=== PATIENT | male | born 1990 | race Caucasian/White ===

== ENCOUNTER 2019-11-04 19:33 | Emergency (ER) ==
[2019-11-04] MEDS ORDERED: NA CHLORIDE 0.9% 1,000 ML ONE (20:29)
[2019-11-04] MEDS ORDERED: ACETAMINOPHEN 500 MG TAB ONE (20:29)
[2019-11-04 21:01] LABS: Absolute Lymphocytes (CBC) 2.8 K/uL (0.7-4.9); Basophils % 0.9 % (0-1.3); Hematocrit 41.6 % (39.6-49.0); Lymphocytes % 19.1 % (15.3-44.8); MPV 8.7 fL (7.6-11.3); RBC Red Blood Cell Count 5.45 M/uL (4.33-5.43)
[2019-11-04 21:08] LABS: Protime INR 1.12
[2019-11-04] MEDS ORDERED: dexAMETHasone 10 MG/ML VIAL ONE (21:22)
[2019-11-04 21:25] LABS: ALT/SGPT 79 U/L (12-78); AST/SGOT 34 U/L (15-37); Albumin 4.6 g/dL (3.4-5.0); Alkaline Phosphatase 62 U/L (45-117); BUN Blood Urea Nitrogen 12 mg/dL (7-18); Bicarbonate 25 mmol/L (21-32); Bilirubin Direct 0.2 mg/dL (0-0.2); Bilirubin Total 1.5 mg/dL (0.2-1.0); Creatine Phosphokinase 137 U/L (39-308); Glucose Level 100 mg/dL (74-106); Potassium 3.9 mmol/L (3.5-5.1); Protein, Total 8.5 g/dL (6.4-8.2); Sodium Level 139 mmol/L (136-145); Troponin (Emerg Dept Use Only) < 0.02 ng/mL (0.0-0.045)
--- NOTE | 2019-11-04 22:29 | EDPHYS ---
Physician Documentation [facility] Name: Hernando Montez Age: 29 yrs Sex: Male : 1990 Arrival Date: 11/04/2019 Time: 19:40 Bed 6 Private MD: ED Physician Duran Ernandez HPI: 11/03 21:07 This 29 yrs old Male presents to ER via EMS with complaints of Shortness Of Breath - jr8 Covid +. 21:07 The patient has shortness of breath at rest. Onset: The symptoms/episode began/occurred jr8 acutely, today. Duration: The symptoms are continuous, but are markedly better than the original presentation. The patient's shortness of breath has no apparent modifying factors. Associated signs and symptoms: The patient has no apparent associated signs or symptoms. Severity of symptoms: At their worst the symptoms were moderate in the emergency department the symptoms are unchanged. The patient has experienced similar episodes in the past, a few times. The patient has not recently seen a physician. Patient stated that he tested positive for covid about 2 weeks ago. Had recent retest showing he was still positive but has been afebrile. Stated that work wanted him to come back. While at work today started to have asthma attack. Patient given breathing treatments and now feeling better . Historical: - Allergies: 19:46 No Known Allergies; ea - Home Meds: 19:46 None [Active]; ea - PMHx: 19:46 None; ea - Immunization history:: Adult Immunizations up to date. - Social history:: Smoking status: unknown. ROS: 21:07 Eyes: Negative for injury, pain, redness, and discharge, ENT: Negative for injury, jr8 pain, and discharge, Neck: Negative for injury, pain, and swelling, Cardiovascular: Negative for chest pain, palpitations, and edema, Abdomen/GI: Negative for abdominal pain, nausea, vomiting, diarrhea, and constipation, Back: Negative for injury and pain, MS/Extremity: Negative for injury and deformity, Skin: Negative for injury, rash, and discoloration, Neuro: Negative for headache, weakness, numbness, tingling, and seizure. 21:07 Respiratory: Positive for cough, dyspnea on exertion, shortness of breath, wheezing. Exam: 21:07 Eyes: Pupils equal round and reactive to light, extra-ocular motions intact. Lids and jr8 lashes normal. Conjunctiva and sclera are non-icteric and not injected. Cornea within normal limits. Periorbital areas with no swelling, redness, or edema. ENT: Nares patent. No nasal discharge, no septal abnormalities noted. Tympanic membranes are normal and external auditory canals are clear. Oropharynx with no redness, swelling, or masses, exudates, or evidence of obstruction, uvula midline. Mucous membranes moist. Neck: Trachea midline, no thyromegaly or masses palpated, and no cervical lymphadenopathy. Supple, full range of motion without nuchal rigidity, or vertebral point tenderness. No Meningismus. Cardiovascular: Tachycardic with a normal S1 and S2. No gallops, murmurs, or rubs. Normal PMI, no JVD. No pulse deficits. Respiratory: Lungs have equal breath sounds bilaterally, clear to auscultation and percussion. No rales, rhonchi or wheezes noted. No increased work of breathing, no retractions or nasal flaring. Abdomen/GI: Soft, non-tender, with normal bowel sounds. No distension or tympany. No guarding or rebound. No evidence of tenderness throughout. Back: No spinal tenderness. No costovertebral tenderness. Full range of motion. Skin: Warm, dry with normal turgor. Normal color with no rashes, no lesions, and no evidence of cellulitis. MS/ Extremity: Pulses equal, no cyanosis. Neurovascular intact. Full, normal range of motion. Neuro: Awake and alert, GCS 15, oriented to person, place, time, and situation. Cranial nerves II-XII grossly intact. Motor strength 5/5 in all extremities. Sensory grossly intact. Cerebellar exam normal. Normal gait. Vital Signs: 19:41 BP 130 / 90; Pulse 127; Resp 19; Temp 99.8; Pulse Ox 96% ; Weight 95.25 kg; Height 5 ea ft. 8 in. (172.72 cm); 21:05 BP 117 / 85; Pulse 103; Resp 19; Pulse Ox 96% on R/A; ea 22:05 BP 120 / 81; Pulse 103; Resp 19; Pulse Ox 96% ; ea 22:50 BP 120 / 78; Pulse 87; Resp 18; Temp 98.6; Pulse Ox 98% ; ea 19:41 Body Mass Index 31.93 (95.25 kg, 172.72 cm) ea MDM: 19:56 Patient medically screened. 22:26 Data reviewed: vital signs, nurses notes, lab test result(s), EKG, radiologic studies, [facility] CT scan, plain films. Data interpreted: Pulse oximetry: on room air is 96 %. Interpretation: normal. Counseling: I had a detailed discussion with the patient and/or guardian regarding: the historical points, exam findings, and any diagnostic results supporting the discharge/admit diagnosis, lab results, radiology results, the need for outpatient follow up, a family practitioner, to return to the emergency department if symptoms worsen or persist or if there are any questions or concerns that arise at home. 22:27 ED course: Patient feeling better. No concerning findings on labs except DD. CT jr8 negative. Most likely asthma attack. Will d/c home to f/u with PCP . 11/03 20:08 Order name: D-Dimer; Complete Time: 21:32 11/03 20:08 Order name: Basic Metabolic Panel; Complete Time: :32 11/03 20:08 Order name: Blood Culture Adult (2) 11/03 20:08 Order name: CBC with Diff; Complete Time: 21:09 11/03 20:08 Order name: CPK; Complete Time: 21:32 11/03 20:08 Order name: Lactate; Complete Time: 22:04 11/03 20:08 Order name: LFT's; Complete Time: 21:32 11/03 20:08 Order name: Procalcitonin; Complete Time: 22:26 11/03 20:08 Order name: Protime (+inr); Complete Time: 21:32 11/03 20:08 Order name: Ptt, Activated; Complete Time: 21:32 11/03 20:08 Order name: Troponin (emerg Dept Use Only); Complete Time: 21:32 11/03 20:08 Order name: Chest Single View XRAY 11/03 21:13 Order name: CT Chest For PE Angio 11/03 20:08 Order name: Cardiac monitoring; Complete Time: 20:12 11/03 20:08 Order name: EKG - Nurse/Tech; Complete Time: 20:12 11/03 20:08 Order name: IV Saline Lock - Large Bore; Complete Time: 20:12 11/03 20:08 Order name: Labs collected and sent; Complete Time: 21:06 11/03 20:08 Order name: O2 Per Protocol; Complete Time: 20:12 11/03 20:08 Order name: O2 Sat Monitoring; Complete Time: 20:12 Administered Medications: 20:47 Drug: Tylenol 1000 mg Route: PO; ea 22:49 Follow up: Response: No adverse reaction ea 20:47 Drug: NS 0.9% 1000 ml Route: IV; Rate: 1 bolus; Site: left antecubital; ea 22:49 Follow up: Response: No adverse reaction; IV Status: Completed infusion; IV Intake: ea 1000ml 21:19 Drug: Decadron - Dexamethasone 10 mg Route: IVP; Site: left antecubital; ea 22:49 Follow up: Response: No adverse reaction ea Disposition: 11/04 00:39 Co-signature as Attending Physician, Duran Ernandez MD. cristino Disposition: 11/04/19 22:29 Discharged to Home. Impression: Mild intermittent asthma with (acute) exacerbation. - Condition is Stable. - Discharge Instructions: Asthma, Adult. - Prescriptions for Prednisone 20 mg Oral Tablet - take 1 tablet by ORAL route once daily for 5 days; 5 tablet. Albuterol Sulfate 90 mcg/actuation - inhale 1-2 puff by INHALATION route every 4-6 hours; 1 Inhaler. - Medication Reconciliation Form, Thank You Letter, Antibiotic Education, Prescription Opioid Use, Work release form form. - Follow up: Private Physician; When: 2 - 3 days; Reason: Recheck today's complaints, Continuance of care, Re-evaluation by your physician. - Problem is new. - Symptoms have improved. Signatures: Dispatcher [employer] Duran Durbin MD MD pkl Thom Jean PA PA jr8 Carmela Sheppard RN RN ea Corrections: (The following items were deleted from the chart) 11/03 23:01 22:29 11/04/2019 22:29 Discharged to Home. Impression: Mild intermittent asthma with ea (acute) exacerbation. Condition is Stable. Forms are Medication Reconciliation Form, Thank You Letter, Antibiotic Education, Prescription Opioid Use. Follow up: Private Physician; When: 2 - 3 days; Reason: Recheck today's complaints, Continuance of care, Re-evaluation by your physician. Problem is new. Symptoms have improved. jr8
--- NOTE | 2019-11-04 22:29 | ER ---
Nurse's Notes [facility] [place], [place] Name: Hernando Montez Age: 29 yrs Sex: Male : 1990 Arrival Date: 11/04/2019 Time: 19:40 Bed 6 Private MD: Diagnosis: Mild intermittent asthma with (acute) exacerbation Presentation: 11/03 19:41 Chief complaint: EMS states: Reports he was in 2 week quarantine for covid + swab, went ea to the doctor and tested positive again. Pt reports he is SOB EMS reports fever of 100.8. Coronavirus screen: Patient reports shortness of breath or difficulty breathing. Prior COVID test. Ebola Screen: No symptoms or risks identified at this time. Initial Sepsis Screen: Does the patient meet any 2 criteria? HR > 90 bpm. Does the patient have a suspected source of infection? No. Patient's initial sepsis screen is negative. Risk Assessment: Do you want to hurt yourself or someone else? Patient reports no desire to harm self or others. Onset of symptoms was November 04, 2019. 19:41 Method Of Arrival: EMS: [facility] ea 19:41 Acuity: KAMRAN 3 ea Triage Assessment: 19:46 General: Appears uncomfortable, Behavior is appropriate for age. Pain: Denies pain. ea Respiratory: Reports shortness of breath Onset: The symptoms/episode began/occurred this morning, the patient reports symptoms have resolved. Historical: - Allergies: 19:46 No Known Allergies; ea - Home Meds: 19:46 None [Active]; ea - PMHx: 19:46 None; ea - Immunization history:: Adult Immunizations up to date. - Social history:: Smoking status: unknown. Screenin:45 Abuse screen: Denies threats or abuse. Nutritional screening: No deficits noted. ea Tuberculosis screening: No symptoms or risk factors identified. Fall Risk None identified. Assessment: 19:46 General: Appears uncomfortable, Behavior is appropriate for age. Pain: Denies pain. ea Neuro: Level of Consciousness is awake, alert, obeys commands, Oriented to person, place, time, situation. Cardiovascular: Patient's skin is warm and dry. Rhythm is sinus tachycardia. Respiratory: Airway is patent Respiratory effort is even, unlabored, Respiratory pattern is regular, symmetrical. Derm: Skin is intact, Skin is dry, Skin is flushed. 20:50 Reassessment: Patient and/or family updated on plan of care and expected duration. Pain ea level reassessed. Patient is alert, oriented x 3, equal unlabored respirations, skin warm/dry/pink. 21:36 Reassessment: Patient and/or family updated on plan of care and expected duration. Pain ea level reassessed. Patient is alert, oriented x 3, equal unlabored respirations, skin warm/dry/pink. Pt taken to CT. 22:05 Reassessment: Patient and/or family updated on plan of care and expected duration. Pain ea level reassessed. Patient is alert, oriented x 3, equal unlabored respirations, skin warm/dry/pink. 23:00 Reassessment: Patient and/or family updated on plan of care and expected duration. Pain ea level reassessed. Patient is alert, oriented x 3, equal unlabored respirations, skin warm/dry/pink. Discharge instruction given to patient, verbalized the understanding of instruction. Pt left ambulatory accompanied by family. Pt tolerating well. Vital Signs: 19:41 BP 130 / 90; Pulse 127; Resp 19; Temp 99.8; Pulse Ox 96% ; Weight 95.25 kg; Height 5 ea ft. 8 in. (172.72 cm); 21:05 BP 117 / 85; Pulse 103; Resp 19; Pulse Ox 96% on R/A; ea 22:05 BP 120 / 81; Pulse 103; Resp 19; Pulse Ox 96% ; ea 22:50 BP 120 / 78; Pulse 87; Resp 18; Temp 98.6; Pulse Ox 98% ; ea 19:41 Body Mass Index 31.93 (95.25 kg, 172.72 cm) ea ED Course: 19:40 Patient arrived in ED. ea 19:45 Triage completed. ea 19:45 Patient has correct armband on for positive identification. Placed in gown. Bed in low ea position. 19:45 Arm band placed on right wrist. Patient placed in an exam room, on a stretcher, on ea pulse oximetry. 19:56 Thom Jean PA is PHCP. jr8 19:56 Duran Ernandez MD is Attending Physician. jr8 19:59 Carmela Sheppard RN is Primary Nurse. ea 20:35 Inserted saline lock: 20 gauge in left forearm, using aseptic technique. ds4 20:47 Inserted saline lock: 20 gauge in right antecubital area, using aseptic technique. ea Blood collected. 21:44 Chest Single View XRAY In Process Unspecified. EDMS 21:48 CT Chest For PE Angio In Process Unspecified. EDMS 22:50 No provider procedures requiring assistance completed. ea 23:00 IV discontinued, intact, bleeding controlled, No redness/swelling at site. Pressure ea dressing applied. Administered Medications: 20:47 Drug: Tylenol 1000 mg Route: PO; ea 22:49 Follow up: Response: No adverse reaction ea 20:47 Drug: NS 0.9% 1000 ml Route: IV; Rate: 1 bolus; Site: left antecubital; ea 22:49 Follow up: Response: No adverse reaction; IV Status: Completed infusion; IV Intake: ea 1000ml 21:19 Drug: Decadron - Dexamethasone 10 mg Route: IVP; Site: left antecubital; ea 22:49 Follow up: Response: No adverse reaction ea Intake: 22:49 IV: 1000ml; Total: 1000ml. ea Outcome: 22:29 Discharge ordered by MD. gregory 22:59 Discharged to home ambulatory, with significant other. ea 22:59 Condition: stable 22:59 Discharge instructions given to patient, Instructed on discharge instructions, follow up and referral plans. medication usage, Demonstrated understanding of instructions, follow-up care, medications, Prescriptions given X 2. 23:01 Patient left the ED. ea Signatures: Dispatcher [employer] EDMS Thom Jean PA PA jr8 Osorio Soto ds4 Carmela Sheppard, RN RN ea
--- NOTE | 2019-11-05 11:25 | RAD REPORT ---
EXAM DESCRIPTION: Justin Single View11/04/2019 9:44 pm CLINICAL HISTORY: sob COMPARISON: none FINDINGS: The lungs appear clear of acute infiltrate. The heart is normal size IMPRESSION: No acute abnormalities displayed
--- NOTE | 2019-11-07 08:46 | RAD REPORT ---
EXAM DESCRIPTION: CT - Chest For Pe Angio - 11/05/2019 7:24 am CLINICAL HISTORY: Shortness of breath. COMPARISON: None. TECHNIQUE: CT angiogram of the chest with IV contrast. 3-D MIP images were obtained in coronal and s agittal reconstructions. This exam was performed according to our departmental dose-optimization prog ameya, which includes automated exposure control, adjustment of the mA and/or kV according to patient s ize and/or use of iterative reconstruction technique. FINDINGS: No filling defects are identified in the pulmonary trunk, main left and right pulmonary ar teries, or the segmental branches. The thyroid gland is normal. No mediastinal or hilar adenopathy. The heart size is normal without per icardial effusion. The thoracic aorta is normal caliber. No consolidation, pleural effusion, or pneum othorax is identified. The visualized upper abdomen demonstrates no acute findings. No acute osseous findings are seen. IMPRESSION: No acute pulmonary embolism. Electronically signed by: Ismael Boyd MD 11/04/2019 9:59 PM CDT Due to temporary technical issues with the PACS/Fluency reporting system, reports are being signed by the in house radiologist without review as a courtesy to ensure prompt reporting. The interpreting r adiologist is fully responsible for the content of the report.
== END 2019-11-04 23:01 | disposition home or self-care (01) ==
LOC: ER 19:33
DX: J45.21 Mild intermittent asthma with (acute) exacerbation (principal)
CPT/HCPCS: 36415; 71045; 71275; 80048; 80076; 82550; 83605; 84145; 84484; 85025; 85379; 85610; 85730; 87040; 93005; 96361; 96374; 99285; J1100; J7030; Q9967

== ENCOUNTER 2020-01-11 17:23 | Emergency (ER) | payer SELFPAY ==
--- OUTSIDE RECORDS SUMMARY | 2020-01-11 17:25 | XMS REPORT | Summary of Care ---
:1990 Author Organization [facility] Address [address] [place] [address] Care Team Providers Name Role Phone Clint Javed MD Primary Care Provider Reason for Referral (Routine) Status Reason Specialty Diagnoses / Referred By Referred To Procedures Contact Contact New Request Orthopedic Surgery Diagnoses Tinea pedis of left foot Maribel, Procedures CONSULT/REFERRAL PODIATRY BOWEN Rodriguez [address] [place] [address] Reason for Visit Reason Comments Follow-up DIABETES MELLITUS Skin Problem dry feet Encounter Details Date Type Department Care Team Description 10/17/2019 Office Visit [facility] Primary Maribel, Tinea pe dis of left foot (Primary Dx); [facility] BOWEN Rodriguez Fatigue, unspecified type; [address] Over weight; [facility] Family [place] of [place] [address] [id number] Allergies Active Allergy Reactions Severity Noted Date Comments Latex Rash 05/18/2014 documented as of this encounter (statuses as of 10/17/2019) Medications Medication Sig Dispensed Refills Start Date End Date Status tobramycin 0.3 % Place 1 Drop in 1 Bottle 0 04/26/2016 Active ophthalmic drops right eye 4 (four) times daily. azithromycin 2 tabs now then 1 1 Package 0 07/16/2017 Active (ZITHROMAX Z-SHERRY) 250 tab daily for 4 mg tabletIndications: days Bronchitis albuterol 90 Inhale 2 Puffs 8.5 g 11 08/10/2019 A ctive mcg/actuation every 4 (four) inhalerIndications: hours as needed Moderate asthma with for Wheezing or exacerbation, Shortness of unspecified whether Breath. persistent fluticasone Inhale 1 Puff 60 Each 11 08/10/2019 Act mary ann propion-salmeterol every 12 (twelve) 250-50 mcg/dose hours. inhalation diskIndications: Mild persistent asthma, unspecified whether complicated predniSONE 20 mg Take 1 tablet by 6 tablet 0 08/10/2019 Active tabletIndications: mouth 2 (two) Moderate asthma with times daily. exacerbation, unspecified whether persistent cetirizine (ZYRTEC) Take 1 tablet by 30 tablet 11 08/10/2019 Active 10 mg mouth daily. tabletIndications: Acute seasonal allergic rhinitis Melatonin 5 mg Take 1 tablet by 0 08/10/2019 Active tabletIndications: mouth at bedtime. Dysuria OTC clotrimazole 1 % Apply to area(s) 1 Tube 1 10/17/2019 07/2 12/2019 Active topical at bedtime for 30 creamIndications: days. Tinea pedis of left foot documented as of this encounter (statuses as of 10/17/2019) Active Problems Problem Noted Date Tobacco abuse 08/17/2017 Ankle sprain, right, initial encounter 05/16/2015 Asthma 07/27/2013 Allergic rhinitis 07/27/2013 Other disorders of bone and cartilage(733.99) 07/08/19 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 documented as of this encounter (statuses as of 10/17/2019) Immunizations Name Administration Dates Next Due Influenza Virus Vaccine 08/18/2014 documented as of this encounter Social History Tobacco Use Types Packs/Day Years Used Date Former Smoker Cigarettes Quit: 06/20/19 14 Smokeless Tobacco: Former User Chew Q uit: 02/2017 Alcohol Use Drinks/Week oz/Week Comments Yes ocassionaly Sex Assigned at Date Recorded Not on file Job Start Date Occupation Industry Not on file Not on file Not on file Travel History Travel Start Travel End No recent travel history available. COVID-19 Exposure Response Date Recorded In the last month, have you been in contact with No / Unsure 10/03/2019 12:46 PM CDT someone who was confirmed or suspected to have Coronavirus / COVID-19? documented as of this encounter Last Filed Vital Signs Vital Sign Reading Time Taken Comments Blood Pressure 134/89 10/17/2019 1:33 PM CDT Pulse 104 10/17/2019 1:33 PM CDT Temperature - - Respiratory Rate 20 10/17/2019 1:33 PM CDT Oxygen Saturation 97% 10/17/2019 1:33 PM CDT Inhaled Oxygen Concentration - - Weight 91.3 kg (201 lb 3.2 oz) 10/17/2019 1:33 PM CDT Height 175.3 cm (5' 9") 10/17/2019 1:33 PM CDT Body Mass Index 29.71 10/17/2019 1:33 PM CDT documented in this encounter Progress Notes Jennifer López FNP - 10/17/2019 1:30 PM CDT Cc: Chief Complaint Patient presents with Follow-up DIABETES MELLITUS Skin Problem dry feet Hernando Montez is a 28 year old male has a past medical history of Ankle sprain, right, initial encounter (05/16/2015), Asthma (07/27/2013), and Tobacco abuse (08/17/2017). The patient notes dryness and skin flaking of left foot. Foot becomes tender at times. Started 1 month ago. He wears boots at work and believes his feet may be sweating. Hasn't tried any otc treatment. He also notes some fatigue, weight gain of 20 lbs over the past year. Doesn't exercise or follow astrict diet. He would like to be checked for DM, given his strong FH of it. Allergies Hernando is allergic to latex. Medications Outpatient Medications Prior to Visit Medication Sig Dispense Refill albuterol 90 mcg/actuation inhaler Inhale 2 Puffs every 4 (four) hours as needed for Wheezing orShortness of Breath. 8.5 g 11 fluticasone propion-salmeterol 250-50 mcg/dose inhalation disk Inhale 1 Puff every 12 (twelve) hours. 60 Each 11 cetirizine (ZYRTEC) 10 mg tablet Take 1 tablet by mouth daily. 30 tablet 11 Melatonin 5 mg tablet Take 1 tablet by mouth at bedtime. OTC predniSONE 20 mg tablet Take 1 tablet by mouth 2 (two) times daily. 6 tablet 0 azithromycin (ZITHROMAX Z-SHERRY) 250 mg tablet 2 tabs now then 1 tab daily for 4 days 1 Package 0 tobramycin 0.3 % ophthalmic drops Place 1 Drop in right eye 4 (four) times daily. 1 Bottle 0 No facility-administered medications prior to visit. Histories Past Medical History: Diagnosis Date Ankle sprain, right, initial encounter 05/16/2015 Asthma 07/27/2013 Tobacco abuse 08/17/2017 Past Surgical History: Procedure Laterality Date HERNIA REPAIR Social History Socioeconomic History Marital status: Spouse name: Not on file Number of children: Not on file Years of education: Not on file Highest education level: Not on file Occupational History Not on file Social Needs Financial resource strain: Not on file Food insecurity: Worry: Not on file Inability: Not on file Transportation needs: Medical: Not on file Non-medical: Not on file Tobacco Use Smoking status: Former Smoker Types: Cigarettes Last attempt to quit: 06/19/2013 Years since quittin.3 Smokeless tobacco: Former User Types: Chew Quit date: 02/2017 Substance and Sexual Activity Alcohol use: Yes Comment: ocassionaly Drug use: No Sexual activity: Yes Partners: Female Lifestyle Physical activity: Days per week: Not on file Minutes per session: Not on file Stress: Not on file Relationships Social connections: Talks on phone: Not on file Gets together: Not on file Attends moravian service: Not on file Active member of club or organization: Not on file Attends meetings of clubs or organizations: Not on file Relationship status: Not on file Intimate partner violence: Fear of current or ex partner: Not on file Emotionally abused: Not on file Physically abused: Not on file Forced sexual activity: Not on file Other Topics Concern Not on file Social History Narrative 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 Negative for activity change and appetite change. Cardiovascular: Negative for leg swelling. Gastrointestinal: Negative for abdominal pain. Genitourinary: Negative for polyuria. Skin: + dry skin left foot. Neurological: Negative for headaches. Endocrine: Negative for polydipsia and polyuria. Vital Signs BP 134/89 | Pulse 104 | Resp 20 | Ht 5' 9" (1.753 m) | Wt 201 lb 3.2 oz (91.3 kg) | SpO2 97% |BMI 29.71 kg/m Physical Exam Constitutional: He is oriented to person, place, and time. He appears well- developed and well-nourished. HENT: Head: Normocephalic. Right Ear: External ear normal. Left Ear: External ear normal. Eyes: EOM are normal. Neck: Normal range of motion. Neck supple. Cardiovascular: Normal rate, regular rhythm and normal heart sounds. Pulmonary/Chest: Effort normal and breath sounds normal. He has no wheezes. He exhibits no tenderness. Abdominal: Soft. Bowel sounds are normal. Musculoskeletal: Normal range of motion. Neurological: He is alert and oriented to person, place, and time. Skin: + dry skin patches to left foot. + callous Psychiatric: He has a normal mood and affect. His behavior is normal. Judgment and thought content normal. Nursing note and vitals reviewed. Assessment/Plan 1. Tinea pedis of left foot Keep area clean and dry. - CONSULT/REFERRAL PODIATRY - clotrimazole 1 % topical cream; Apply to area(s) at bedtime for 30 days. Dispense: 1 Tube; Refill: 1 2. Fatigue, unspecified type - GLYCOSYLATED HEMOGLOBIN (A1C) - COMP. METABOLIC PANEL (88875) - THYROID STIMULATING HORMONE - FREE T4 - LIPID PANEL (74130)(TOTAL CHOLESTEROL, TRIGLYCERIDES, HDL) - VITAMIN D, 25-OH 3. Overweight - GLYCOSYLATED HEMOGLOBIN (A1C) - LIPID PANEL (50526)(TOTAL CHOLESTEROL, TRIGLYCERIDES, HDL) 4. Family history of diabetes mellitus - GLYCOSYLATED HEMOGLOBIN (A1C) Plan of care, desired health behaviors, goals and medications discussed with patient and educationalresources and self-management tools provided. Patient/family/guardian voices understanding. Barriers to care: none Ability to manage care: good As necessary, prescribed medications and potential significant medication side effects or medicationinteractions were discussed with the patient and will let me know if any occur. Call or return to clinic prn if these symptoms worsen or fail to improve as anticipated. Call or report to ER if symptoms should symptoms progress or worsen. The patient indicates understanding of these issues and agrees with the plan. AVS printed and given to patient/family/guardian documented in this encounter Plan of Treatment Date Type Specialty Care Team Description 11/17/2019 Office Visit Orthopedic Surgery Pebbles Bower FNP [address] [facility] [address] [place] [address] [phone] Name Type Priority Associated Diagnoses Order S chedule GLYCOSYLATED HEMOGLOBIN LAB Routine Fatigue, unspecified type Ordered: 10/17/2019 (A1C) Overweight Family history of diabetes mellitus COMP. METABOLIC PANEL LAB Routine Fatigue, unspecifie d type Ordered: 10/17/2019 (22646) THYROID STIMULATING LAB Routine Fatigue, unspecified type Ordered: 10/17/2019 HORMONE FREE T4 LAB Routine Fatigue, unspecified type Or dered: 10/17/2019 LIPID PANEL (60826)(TOTAL LAB Routine Fatigu e, unspecified type Ordered: 10/17/2019 CHOLESTEROL, Overweight TRIGLYCERIDES, HDL) VITAMIN D, 25-OH LAB Routine Fatigue, unspecified typ e Ordered: 10/17/2019 Health Maintenance Due Date Last Done Comments VARICELLA VACCINES (1 of 2 - 2-dose childhood series) 1990 PNEUMOCOCCAL 0-64 YEARS COMBINED SERIES (1 of 1 - 10/28/1995 PPSV23) DTaP,Tdap,and Td Vaccines (1 - Tdap) 2000 INFLUENZA VACCINE (Season Ended) 2019 08/18/2014 Depression Screening 10/16/2020 10/17/2019 documented as of this encounter Results Not on filedocumented in this encounter Visit Diagnoses Diagnosis Tinea pedis of left foot - Primary Dermatophytosis of foot Fatigue, unspecified type Overweight Family history of diabetes mellitus documented in this encounter Insurance Payer Benefit Plan Subscriber ID Effective Dates Phone Address Type / Group [facility] [id number] 2019-Tim [phone] [address] PPO/POS [place] SELECT t 7 [id number] [place] [address] documented as of this encounter
--- OUTSIDE RECORDS SUMMARY | 2020-01-11 17:25 | XMS REPORT | Summary of Care ---
:1990 Author Organization [facility] Address [address] [place] [address] Care Team Providers Name Role Phone Clint Javed MD Primary Care Provider Reason for Referral (Routine) Status Reason Specialty Diagnoses / Referred By Referred To Procedures Contact Contact New Request Orthopedic Surgery Diagnoses Tinea pedis of left foot Maribel, Procedures CONSULT/REFERRAL PODIATRY BOWEN Rodriguez [address] [place] [address] Reason for Visit Reason Comments Follow-up DIABETES MELLITUS Skin Problem dry feet Encounter Details Date Type Department Care Team Description 10/17/2019 Office Visit [facility] Primary Maribel, Tinea pe dis of left foot (Primary Dx); [facility] BOWEN Rodriguez Fatigue, unspecified type; [address] [address] Over weight; [facility] Family [place] [address] [id number] Allergies Active Allergy Reactions Severity Noted Date [...] file Gets together: Not on file Attends taoism service: Not on file Active member of [...] GLYCOSYLATED HEMOGLOBIN (A1C) - COMP. METABOLIC PANEL (86021) - THYROID STIMULATING HORMONE - FREE T4 - LIPID PANEL (10228)(TOTAL CHOLESTEROL, TRIGLYCERIDES, HDL) - VITAMIN D, 25-OH 3. Overweight - GLYCOSYLATED HEMOGLOBIN (A1C) - LIPID PANEL (98283)(TOTAL CHOLESTEROL, TRIGLYCERIDES, HDL) 4. Family history of [...] Team Description 11/17/2019 Office Visit Orthopedic Surgery Pebbels Bower FNP [address] [facility] [address] [place] [address] [phone] Name Type Priority Associated Diagnoses Order S chedule GLYCOSYLATED HEMOGLOBIN LAB Routine Fatigue, unspecified type Ordered: 10/17/2019 (A1C) Overweight Family history of diabetes mellitus COMP. METABOLIC PANEL LAB Routine Fatigue, unspecifie d type Ordered: 10/17/2019 (20577) THYROID STIMULATING LAB Routine Fatigue, unspecified type Ordered: 10/17/2019 HORMONE FREE T4 LAB Routine Fatigue, unspecified type Or dered: 10/17/2019 LIPID PANEL (60885)(TOTAL LAB Routine Fatigu e, unspecified type Ordered: [...] Effective Dates Phone Address Type / Group [facility] [id number] 2019-Tim [phone] [address] PPO/POS [place] SELECT t 7 [id number] [place] [address] documented as of this encounter
--- OUTSIDE RECORDS SUMMARY | 2020-01-11 17:25 | XMS REPORT | Summary of Care ---
:1990 Author Organization [facility] Review Trackers [facility] Address [address] [place] [address] Care Team Providers Name Role Phone Clint Javed MD Primary Care Provider Reason for Visit Reason Comments LAB WORK Encounter Details Date Type Department Care Team Description 10/17/2019 Auditing Specialist Visit [facility] [place] [address] [place] [address] Fatigue, unspecified Primary and Specialty Lab, [facility] type Care Lab [address] [place] [address] Allergies Active Allergy Reactions Severity Noted Date [...] % Apply to area(s) 1 Tube 1 10/17/201910/19 Active topical at bedtime for 30 creamIndications: [...] of this encounter Last Filed Vital Signs Not on filedocumented in this encounter Plan of Treatment Date Type Specialty Care Team Description 11/17/2019 Office Visit Orthopedic Surgery Pebbles Bower, FRAME GATE MORTISER OPERATOR [address] [facility] [address] [place] [address] [phone] Health Maintenance Due Date Last Done Comments VARICELLA VACCINES (1 of 2 - 2-dose childhood series) 1990 PNEUMOCOCCAL 0-64 YEARS COMBINED SERIES (1 of 1 - 10/28/1995 PPSV23) DTaP,Tdap,and Td Vaccines (1 - Tdap) 2000 INFLUENZA VACCINE (Season Ended) 2019 08/18/2014 Depression Screening 10/16/2020 10/17/2019 documented as of this encounter Results Not on filedocumented in this encounter Visit Diagnoses Diagnosis Fatigue, unspecified type documented in this encounter Insurance Payer Benefit Plan Subscriber ID Effective Dates Phone Address Type / Group [facility] [id number] 2019-Tim [phone] [address] PPO/POS [facility] [id number] [place] [address] documented as of this encounter
--- OUTSIDE RECORDS SUMMARY | 2020-01-11 17:25 | XMS REPORT | Summary of Care ---
:1990 Author Organization [facility] Address [address] [place] [address] Care Team Providers Name Role Phone Clint Javed MD Primary Care Provider Encounter Details Date Type Department Care Team Description 10/17/2019 Orders Only [facility] Doctor Unassigned, No [address] [facility] [place] [address] [address] [place] [address] Allergies Active Allergy Reactions Severity Noted Date [...] daily. exacerbation, unspecified whether persistent cetirizine (ZYRTEC) 10 Take 1 tablet by 30 tablet 11 08/10/2019 Active mg tabletIndications: mouth daily. Acute seasonal allergic rhinitis Melatonin 5 mg Take 1 tablet by 0 08/10/2019 Active tabletIndications: mouth at bedtime. Dysuria OTC documented as of this encounter (statuses as [...] Treatment Date Type Specialty Care Team Description 10/17/2019 Office Visit Family Medicine Nati López, COSMETOLOGY TEACHER [address] [place], [place] [address] Health Maintenance Due Date Last Done Comments VARICELLA VACCINES (1 of 2 - 2-dose childhood series) 1990 PNEUMOCOCCAL 0-64 YEARS COMBINED SERIES (1 of - 10/28/1995 PPSV23) DTaP,Tdap,and Td Vaccines (1 - Tdap) 2000 Depression Screening 2001 INFLUENZA VACCINE (Season Ended) 2019 08/18/2014 documented as of this encounter Procedures Procedure Name Priority Date/Time Associated Diagnosis Comme nts ASSIGNMENT OF BENEFITS Routine 10/17/2019 1:25 PM CDT documented in this encounter Results Not on filedocumented in this encounter Insurance Payer Benefit Plan Subscriber ID Effective Dates Phone Address Type / Group [place] [id number] 2019-Tim [employer] R[employer]K MGMT RISK MGMT t [employer] [facility] [id number] 2019-Tim [phone] [address] PPO/POS [place] SELECT t [id number] [place] [address] documented as of this encounter
--- OUTSIDE RECORDS SUMMARY | 2020-01-11 17:26 | XMS REPORT | Summary of Care ---
:1990 Author Organization [facility] Address [address] [place] [address] Care Team Providers Name Role Phone Clint Javed MD Primary Care Provider Reason for Visit Reason Comments LAB testing Encounter Details Date Type Department Care Team Description 11/01/2019 Laboratory Only [facility] Unknown, Attending Angie dawn [facility] Urgent Care Nurse, Bobby Urgent disease (Primary Dx) [address] [place] [address] Allergies Active Allergy Reactions Severity Noted Date Comments Latex Rash 05/18/2014 documented as of this encounter (statuses as of 11/01/2019) Medications Medication Sig Dispensed Refills Start Date [...] creamIndications: days. Tinea pedis of left foot predniSONE 20 mg Take 40 mg (2 10 tablet 0 10/18/2019 Active tabletIndications: tablets) daily COVID-19 for 5 days documented as of this encounter (statuses as of 11/01/2019) Active Problems Problem Noted Date Acute abdominal pain 10/25/2019 Anxiety in acute stress reaction 10/25/2019 Arm pain 10/25/2019 GERD (gastroesophageal reflux disease) 10/25/2019 Musculoskeletal strain 10/25/2019 Pharyngitis 10/25/2019 Viral infection 10/25/2019 Viral pharyngitis 10/25/2019 Tobacco abuse 08/17/2017 Right ankle sprain 05/16/2015 Asthma 07/27/2013 Allergic rhinitis 07/27/2013 Other disorders of bone and cartilage(733.99) 07/08/19 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 documented as of this encounter (statuses as of 11/01/2019) Immunizations Name Administration Dates Next Due Influenza [...] been in contact with No / Unsure 10/18/2019 1:39 PM CDT someone who was confirmed or suspected to have Coronavirus / COVID-19? documented as of this encounter Last Filed Vital Signs Not on filedocumented in this encounter Plan of Treatment Date Type Specialty Care Team Description 11/17/2019 Office Visit Orthopedic Surgery Pebbles Bower, FITTING SUPERVISOR [address] [facility] [address] [place] [address] [phone] Name Type Priority Associated Diagnoses Order S chedule COVID-19 (PCR MOLECULAR LAB Routine Screening for vir al Expected: 11/01/2019, TESTING) disease Expires: 2020 Health Maintenance Due Date Last Done Comments PNEUMOCOCCAL 0-64 YEARS COMBINED 11/12/2019 Postponed from 10/28/1995 SERIES (1 of 1 - PPSV23) (Altern ative Guidelines) INFLUENZA VACCINE (#1) 2019 08/18/2014 Depression Screening 10/16/2020 10/17/2019 DTaP,Tdap,and Td Vaccines (1 - 10/24/2020 P ostponed from 2000 Tdap) (Refused) VARICELLA VACCINES (1 of 2 - 10/24/2020 Pos tponed from 1990 2-dose childhood series) (Altern ative Guidelines) documented as of this encounter Results Not on filedocumented in this encounter Visit Diagnoses Diagnosis Screening for viral disease - Primary Special screening examination for unspec ified viral disease documented in this encounter Additional Health Concerns Infection Onset Date Last Indicated Resolved Time COVID-19 Confirmed 10/19/2019 10/19/2019 documented as of this encounter Insurance Payer Benefit Plan Subscriber ID Effective Dates Phone Address Type / Group [facility] [employer] [id number] 2019-Tim [phone] [address] PPO/POS [place] [employer] t 7 [id number] [place] [address] documented as of this encounter
--- OUTSIDE RECORDS SUMMARY | 2020-01-11 17:26 | XMS REPORT | Summary of Care ---
:1990 [address] [facility] Address [address] [place] [address] Care Team Providers Name Role Phone Constance Javed MD Primary Care Provider Reason for Visit Reason Comments ED F/U COVID-19 Shortness of Breath (STAT) Status Reason Specialty Diagnoses / Referred By Referred To Procedures Contact Contact Closed Family Medicine Diagnoses COVID-19 Sanket Costa Moore, John North Procedures Discharge Follow-up: PCP CONSTANCE JAVED JR; 3-5 Days MD Maksim MD [address] [place] [address] [address] [place], [place] [address] [place], [place] Phone: [phone] Phone: Fax: Encounter Details Date Type Department Care Team Description 10/25/2019 Telemedicine Visit [facility] Primary Constance Javed 20 19 novel Care-Manoj Barnett Jr., MD coronavirus disease [address] [address] [address] [address] (COVID-19) ( [facility]) [place], [place] [address] [place], [place] [phone] [address] Allergies Active Allergy Reactions Severity Noted Date Comments Latex Rash 05/18/2014 documented as of this encounter (statuses as of 10/25/2019) Medications Medication Sig Dispensed Refills Start Date [...] as of this encounter (statuses as of 10/25/2019) Active Problems Problem Noted Date Acute abdominal [...] as of this encounter (statuses as of 10/25/2019) Immunizations Name Administration Dates Next Due Influenza [...] Signs Not on filedocumented in this encounter Progress Notes Constance Javed Jr., MD - 10/25/2019 8:50 AM CDT TELEHEALTH NOTE Verbal consent obtained from Patient: Hernando Montez due to the COVID-19 pandemic for telehealth services provided below. Communication with patient was conducted via Video Call. Location of Patient: Home Location of Provider: Clinic Date of Service: 10/25/2019 Chief Complaint: ED F/U (COVID-19) and Shortness of Breath HPI: Hernando Montez is a 28 year old male who recently tested costive for COVID-19. He was seen in the ED on 10/18/2019 with c/o of muscles aches, cough, and, fever. He was previously tested for COVID-19 two weeks prior and was negative. COVID-19 Rapid Test conducted in the ED was negative but the SARS-CoV-2 PCR was Positive on 10/18/2019. He was prescribed Prednisone 20 mg 2 tablets (40 mg) for 5 days. Today his breathing has improved and states he last ran a fever 5 days ago. He denies any current SOB. He have a dry cough with a low appetite. He notes slight weight loss. He needs a negative COVID test to return to work. Past Medical History: Diagnosis Date Ankle sprain, right, initial encounter 05/16/2015 Asthma 07/27/2013 Tobacco abuse 08/17/2017 MEDICATIONS: Current Outpatient Medications Medication Sig Dispense Refill predniSONE 20 mg tablet Take 40 mg (2 tablets) daily for 5 days 10 tablet 0 clotrimazole 1 % topical cream Apply to area(s) at bedtime for 30 days. 1 Tube 1 albuterol 90 mcg/actuation inhaler Inhale 2 Puffs every 4 (four) hours as needed for Wheezing orShortness of Breath. 8.5 g 11 cetirizine (ZYRTEC) 10 mg tablet Take 1 tablet by mouth daily. 30 tablet 11 fluticasone propion-salmeterol 250-50 mcg/dose inhalation disk Inhale 1 Puff every 12 (twelve) hours. 60 Each 11 Melatonin 5 mg tablet Take 1 [...] (four) times daily. 1 Bottle 0 No current facility-administered medications for this visit. ROS Review of Systems Constitutional: Positive for fatigue and weight loss. Negative for chills, diaphoresis and fever. HENT: Negative for congestion, ear discharge, ear pain, mouth sores, nosebleeds, rhinorrhea, sneezing, sore throat and trouble swallowing. Eyes: Negative for pain, redness and itching. Respiratory: Positive for cough and shortness of breath. Negative for chest tightness and wheezing. Cardiovascular: Negative for chest pain, palpitations and leg swelling. Gastrointestinal: Negative for anal bleeding, blood in stool, constipation, diarrhea, nausea and vomiting. Genitourinary: Negative for polyuria, frequency, discharge, penile swelling, difficulty urinating, genital sores, penile pain, testicular pain and nocturia. Musculoskeletal: Negative for back pain, joint swelling and neck stiffness. Skin: Negative for color change, pallor and rash. Neurological: Negative for dizziness, tremors, seizures, weakness, numbness and headaches. Psychiatric/Behavioral: Negative for behavioral problems, confusion, hallucinations, self-injury andsuicidal ideas. The patient is not hyperactive. Hematological: Does not bruise/bleed easily. Endocrine: Positive for weight loss. Negative for hair loss, polydipsia and polyuria. TELEHEALTH EXAM Physical Exam Constitutional: He is oriented to person, place, and time. He is cooperative. Pulmonary/Chest: Effort normal and breath sounds normal. Neurological: He is alert and oriented to person, place, and time. Psychiatric: He has a normal mood and affect. His speech is normal and behavior is normal. Thought content normal. Cognition and memory are normal. ASSESSMENT/ PLAN Hernando Montez is a 28 year old male with PMH as above presenting with: 1. COVID-19 Positive - Patient will be scheduled for COVID-19 PCR Test for the future to ensure if he is negative. Advised to schedule test for after October 27. After visit summary (AVS ) documentation will be available through [employer] for this encounter. A total of 15 minutes was spent on the Video Call, chart review, and coordination of care with specialists. SCRIBE: Toño Smith am scribing for, and in the presence of, Constance Javed Jr, MD who performed the services described here-in. Toño Champion, October 25, 2019, 7:39 AM PHYSICIAN: Constance Smith Jr, MD, personally performed the services described in this documentation , as scribed by, Toño Champion in my presence and it is both accurate and complete. Constance Javed Jr, MD October 25, 2019, 10:02 AM documented in this encounter Plan of Treatment Date Type Specialty Care Team Description 10/28/2019 Laboratory Only Family Medicine Nurse, Bobby Urgent 11/17/2019 Office Visit Orthopedic Surgery Pebbles Bower, MISSION COORDINATOR [address] [facility] [address] [place] [address] [phone] Health Maintenance Due Date Last Done Comments [...] filedocumented in this encounter Visit Diagnoses Diagnosis 2019 novel coronavirus disease (COVID-19 ) - Primary documented in this encounter Additional Health Concerns Infection Onset Date Last Indicated Resolved Time COVID-19 Confirmed 10/19/2019 10/19/2019 documented as of this encounter Insurance Payer Benefit Plan Subscriber ID Effective Dates Phone Address Type / Group [facility] [id number] 2019-Tim [phone] [address] PPO/POS [place] SELECT t 7 [id number] [place] [address] documented as of this encounter
--- OUTSIDE RECORDS SUMMARY | 2020-01-11 17:26 | XMS REPORT | Summary of Care ---
:1990 Author Organization [facility] Address [address] [place] [address] Care Team Providers Name Role Phone Clint Javed MD Primary Care Provider Reason for Visit Reason Comments Assessment Encounter Details Date Type Department Care Team Description 11/08/2019 Telephone [facility] Primary Clint Javed Jr. , Assessment [place] [address] [address] [place] [address] [place], [place] [phone] [address] Allergies Active Allergy Reactions Severity Noted Date Comments Latex Rash 05/18/2014 documented as of this encounter (statuses as of 11/08/2019) Medications Medication Sig Dispensed Refills Start Date [...] as of this encounter (statuses as of 11/08/2019) Active Problems Problem Noted Date Elevated LFTs 11/01/2019 Acute abdominal pain 10/25/2019 Anxiety in acute stress reaction 10/25/2019 Arm pain 10/25/2019 GERD (gastroesophageal reflux disease) 10/25/2019 Musculoskeletal strain 10/25/2019 Pharyngitis 10/25/2019 Viral infection 10/25/2019 Viral pharyngitis 10/25/2019 Tobacco abuse 08/17/2017 Right ankle sprain 05/16/2015 Asthma 07/27/2013 Allergic rhinitis 07/27/2013 Other disorders of bone and cartilage(733.99) 07/08/19 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 documented as of this encounter (statuses as of 11/08/2019) Immunizations Name Administration Dates Next Due Influenza [...] Treatment Date Type Specialty Care Team Description 11/21/2019 Office Visit Orthopedic Surgery Pebbles Bower, GENERAL OPERATIONS AGENT [address] [facility] [address] [place] [address] [phone] Health Maintenance Due Date Last Done Comments [...] Results Not on filedocumented in this encounter Additional Health Concerns Infection Onset Date Last Indicated Resolved Time COVID-19 Confirmed 10/19/2019 11/01/2019 documented as of this encounter Insurance Payer Benefit Plan Subscriber ID Effective Dates Phone Address Type / Group [address] [place] [id number] 2019-Presen [employer] R[employer]K MGMT RISK MGMT t [employer] OF [employer] [id number] 2019-Presen [phone] [address] PPO/POS [place] SELECT t 7 [id number] [place] [address] documented as of this encounter
--- OUTSIDE RECORDS SUMMARY | 2020-01-11 17:26 | XMS REPORT | Summary of Care ---
:1990 Author Organization [facility] Address [address] [place] [address] Care Team Providers Name Role Phone Clint Javed MD Primary Care Provider Reason for Visit Reason Comments Results Forms Encounter Details Date Type Department Care Team Description 10/18/2019 Telephone [facility] Primary Jennifer López R esults; Forms [facility] [address] [place] [address] [place], [place] [address] Allergies Active Allergy Reactions Severity Noted Date Comments Latex Rash 05/18/2014 documented as of this encounter (statuses as of 10/18/2019) Medications Medication Sig Dispensed Refills Start Date [...] as of this encounter (statuses as of 10/18/2019) Active Problems Problem Noted Date Tobacco abuse 08/17/2017 Ankle sprain, right, initial encounter 05/16/2015 Asthma 07/27/2013 Allergic rhinitis 07/27/2013 Other disorders of bone and cartilage(733.99) 07/08/19 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 documented as of this encounter (statuses as of 10/18/2019) Immunizations Name Administration Dates Next Due Influenza [...] 11/17/2019 Office Visit Orthopedic Surgery Pebbles Bower, VASCULAR SURGERY PHYSICIAN [address] [facility] [address] [place] [address] [phone] Health Maintenance Due Date Last Done Comments VARICELLA VACCINES (1 of 2 - 2-dose childhood series) 1990 PNEUMOCOCCAL 0-64 YEARS COMBINED SERIES (1 of 1 - 10/28/1995 PPSV23) DTaP,Tdap,and Td Vaccines (1 - Tdap) 2000 INFLUENZA VACCINE (Season Ended) 2019 08/18/2014 Depression Screening 10/16/2020 10/17/2019 documented as of this encounter Results HEPATIC FUNCTION PANEL (23412) (ALB,T.PRO,BILI T,BU/BC,ALT,AST,ALK PHOS) (10/17/2019 2:26 PM CDT) Pathologist Sig nature TOTAL BILI 1.7 (H) 0.1 - 1.1 mg/dL [facility] BILI UNCON 1.7 (H) 0.1 - 1.1 mg/dL [facility] BILI CONJ 0.0 0.0 - 0.3 mg/dL [facility] T PROTEIN 8.4 (H) 6.3 - 8.2 g/dL [facility] ALBUMIN 5.0 3.5 - 5.0 g/dL [facility] ALK PHOS 56 34 - 122 U/L [facility] ALTv 81 (H) 5 - 50 U/L [facility] AST(SGOT) 49 (H) 13 - 40 U/L [facility] Specimen Blood Performing Organization Address City/State/Zipcode Phone Number [facility] CLIA: [id number], [address] [place], [place] [address] [facility] documented in this encounter Visit Diagnoses Diagnosis Elevated ALT measurement - Primary Nonspecific elevation of levels of trans aminase or lactic acid dehydrogenase (LDH) documented in this encounter Insurance Payer Benefit Plan Subscriber ID Effective Dates Phone Address Type / Group [address] [place] [id number] 2019-Presen WCI RISK MGMT RISK MGMT t BCBS OF [employer] [id number] 2019-Presen [phone] [address] PPO/POS [place] SELECT t 7 [id number] [place] [address] documented as of this encounter
--- OUTSIDE RECORDS SUMMARY | 2020-01-11 17:26 | XMS REPORT | Summary of Care ---
:1990 Author Organization [facility] Address [address] [place] [address] Care Team Providers Name Role Phone Clint Javed MD Primary Care Provider Reason for Referral (Routine) Status Reason Specialty Diagnoses / Procedures Referred By Rosenda cullen To Contact Contact New Request Gastroenterology Diagnoses Elevated LFTs Nato López CONSULT/REFERRAL GASTROENTEROLOGY BOWEN Rodriguez [address] [place] [address] Reason for Visit Reason Comments Referral/consult Encounter Details Date Type Department Care Team Description 11/01/2019 Telephone [facility] Primary Jennifer López R eferral/consult Care-[facility] [address] [address] [address] [place] [address] [place], [place] [address] Allergies Active Allergy Reactions Severity Noted Date [...] of 11/01/2019) Active Problems Problem Noted Date Elevated LFTs [...] 11/17/2019 Office Visit Orthopedic Surgery Pebbles Bower, MASSAGE COORDINATOR [address] [facility] [address] [place] [address] [phone] Health Maintenance Due Date Last Done Comments [...] filedocumented in this encounter Visit Diagnoses Diagnosis Elevated LFTs - Primary Other abnormal blood chemistry documented in this encounter Additional Health Concerns Infection Onset Date Last Indicated Resolved Time COVID-19 Confirmed 10/19/2019 10/19/2019 COVID-19 Rule Out 11/01/2019 11/01/2019 documented as of this encounter Insurance Payer Benefit Plan Subscriber ID Effective Dates Phone Address Type / Group [address] [place] [id number] 2019-Presen WCI RISK MGMT RISK MGMT t [employer] OF [employer] [id number] 2019-Presen [phone] [address] PPO/POS [facility] t 7 [id number] [place] [address] documented as of this encounter
--- OUTSIDE RECORDS SUMMARY | 2020-01-11 17:26 | XMS REPORT | Summary of Care ---
:1990 Author Organization [facility] Address [address] [place] [address] Care Team Providers Name Role Phone Clint Javed MD Primary Care Provider Reason for Visit Reason Comments LAB testing Encounter Details Date Type Department Care Team Description 11/01/2019 Laboratory Only [facility] Unknown, Attending Angie dawn [facility] Nurse, Bobby Urgent disease (Primary Dx) [address] [place] [address] Allergies Active Allergy Reactions Severity [...] Team Description 11/17/2019 Office Visit Orthopedic Surgery AbhinavmayitoPebbles, COIN PURSE ASSEMBLER [address] [facility] [address] [place], [place] [address] Name Type Priority Associated Diagnoses Order S [...] Effective Dates Phone Address Type / Group BCBS OF [facility] [employer] [id number] 2019-Tim [phone] [address] PPO/POS [place] SELECT t 7 [id number] [place] [address] documented as of this encounter
--- OUTSIDE RECORDS SUMMARY | 2020-01-11 17:26 | XMS REPORT | Summary of Care ---
:1990 Author Organization [facility] Address [address] [place] [address] Care Team Providers Name Role Phone Constance Javed MD Primary Care Provider Reason for Referral (STAT) Status Reason Specialty Diagnoses / Referred By Referred To Procedures Contact Contact New Request Diagnoses COVID-19 Sanket Costa Moore, John North Procedures Discharge Follow-up: PCP CONSTANCE JAVED JR; 3-5 Days MD Maksim MD [address] [place] [address] [id number] Phone: [phone] Phone: Fax: Reason for Visit Reason Comments Fever Body Aches Sore Throat Auth/Cert Status Reason Specialty Diagnoses / Referred By Referred To Procedures Contact Contact Emergency Medicine [facility] [address] [place] [phone] Fax: Encounter Details Date Type Department Care Team Description 10/18/2019 Emergency [facility] Sanket Costa COVID-19 (Primary Dx) [address] [place] [address] MD [place] [address] [place], [place] [phone] Allergies Active Allergy Reactions Severity Noted Date Comments Latex Rash 05/18/2014 documented as of this encounter (statuses as of 10/18/2019) Medications Medication Sig Dispensed Refills Start Date End Date Status tobramycin 0.3 % Place 1 Drop in 1 Bottle 0 04/26/2016 Active ophthalmic drops right eye 4 (four) times daily. azithromycin 2 tabs now then 1 1 Package 0 07/16/2017 Active (ZITHROMAX Z-SHERRY) tab daily for 4 250 mg days tabletIndications: Bronchitis albuterol 90 Inhale 2 Puffs 8.5 g 11 08/10/2019 A ctive mcg/actuation every 4 (four) inhalerIndications: hours as needed for Moderate asthma Wheezing or with exacerbation, Shortness of unspecified whether Breath. persistent fluticasone Inhale 1 Puff every 60 Each 11 08/10/2019 Active propion-salmeterol 12 (twelve) hours. 250-50 mcg/dose inhalation diskIndications: Mild persistent asthma, unspecified whether complicated predniSONE 20 mg Take 1 tablet by 6 tablet 0 08/10/2019 Active tabletIndications: mouth 2 (two) times Moderate asthma daily. with exacerbation, unspecified whether persistent cetirizine (ZYRTEC) Take 1 tablet by 30 tablet 11 08/10/2019 Active 10 mg mouth daily. tabletIndications: Acute seasonal allergic rhinitis Melatonin 5 mg Take 1 tablet by 0 08/10/2019 Active tabletIndications: mouth at bedtime. Dysuria OTC clotrimazole 1 % Apply to area(s) 1 Tube 1 10/17/201910/19 Active topical at bedtime for 30 creamIndications: days. Tinea pedis of left foot albuterol 90 Inhale 2 Puffs 1 Inhaler 0 10/18/2019 10/23/2019 Active mcg/actuation every 6 (six) hours inhalerIndications: as needed for COVID-19 Wheezing, Shortness of Breath or Bronchospasm for up to 5 days. predniSONE 20 mg Take 40 mg (2 10 tablet 0 10/18/2019 Active tabletIndications: tablets) daily for COVID-19 5 days documented as of this encounter [...] Sign Reading Time Taken Comments Blood Pressure 125/60 10/18/2019 6:44 PM CDT Pulse 117 10/18/2019 6:44 PM CDT Temperature 37.3 C (99.1 F) 10/18/2019 6:44 PM CDT Respiratory Rate 19 10/18/2019 6:44 PM CDT Oxygen Saturation 98% 10/18/2019 6:44 After ambulat ion for 2 PM CDT minutes Inhaled Oxygen - - Concentration Weight 94.3 kg (208 lb) 10/18/2019 1:40 PM CDT Height - - Body Mass Index 30.72 10/17/2019 1:33 PM CDT documented in this encounter Discharge Instructions InstructionsBeSanket garcia MD - 10/18/2019 Your diagnosis is: viral syndrome, presumed covid19 Your treatments today included: Orders Placed This Encounter Procedures POCT RAPID STREP SCREEN FOR GROUP A COVID-19 (ID NOW RAPID TESTING) CORONAVIRUS COVID-19 TESTING CBC WITH DIFF COMP. METABOLIC PANEL (42555) CBC WITH DIFFERENTIAL Discharge Follow-up: PCP CONSTANCE JAVED JR; 3-5 Days No results found for this visit on 10/18/19. Recent Results (from the past 24 hour(s)) COVID-19 (ID NOW RAPID TESTING) Collection Time: 10/18/19 2:37 PM Result Value Ref Range SARS-CoV-2 Rapid ID NOW Not Detected Not Detected POCT RAPID STREP SCREEN FOR GROUP A Collection Time: 10/18/19 3:01 PM Result Value Ref Range POCT GP A STREP Negative Negative - Negative COMP. METABOLIC PANEL ([id number]) Collection Time: 10/18/19 4:46 PM Result Value Ref Range NA 136 135 - 145 mmol/L K 4.4 3.5 - 5.0 mmol/L CL 97 (L) 98 - 108 mmol/L CO2 TOTAL 26 23 - 31 mmol/L AGAP 13 2 - 16 BUN 13 7 - 23 mg/dL GLUCOSE 106 70 - 110 mg/dL CREATININE 1.03 0.60 - 1.25 mg/dL TOTAL BILI 1.7 (H) 0.1 - 1.1 mg/dL CALCIUM 10.3 8.6 - 10.6 mg/dL T PROTEIN 8.3 (H) 6.3 - 8.2 g/dL ALBUMIN 5.0 3.5 - 5.0 g/dL ALK PHOS 61 34 - 122 U/L ALTv 101 (H) 5 - 50 U/L AST(SGOT) 66 (H) 13 - 40 U/L eGFR Calculation (Non-) 85.4 mL/min/1.73m2 eGFR Calculation () 103.5 mL/min/1.73m2 CBC WITH DIFFERENTIAL Collection Time: 10/18/19 4:46 PM Result Value Ref Range WBC 10.73 (H) 4.20 - 10.70 10*3/L RBC 5.71 (H) 4.26 - 5.52 10*6/L HGB 15.3 12.2 - 16.4 g/dL HCT 44.1 38.4 - 49.3 % MCV 77.2 (L) 81.7 - 95.6 fL MCH 26.8 26.1 - 32.7 pg MCHC 34.7 31.2 - 35.0 g/dL RDW-SD 36.3 (L) 38.5 - 51.6 fL RDW-CV 13.2 12.1 - 15.4 % PLT 228 150 - 328 10*3/L MPV 10.8 9.8 - 13.0 fL NRBC/100 WBC 0.0 0.0 - 10.0 /100 WBCs NRBC x10^3 <0.01 10*3/L GRAN MAT (NEUT) % 80.7 % IMM GRAN % 0.60 % LYMPH % 6.9 % MONO % 10.9 % EOS % 0.5 % BASO % 0.4 % GRAN MAT x10^3(ANC) 8.67 (H) 1.99 - 6.95 10*3/uL IMM GRAN x10^3 0.06 0.00 - 0.06 10*3/uL LYMPH x10^3 0.74 (L) 1.09 - 3.23 10*3/uL MONO x10^3 1.17 (H) 0.36 - 1.02 10*3/uL EOS x10^3 0.05 (L) 0.06 - 0.53 10*3/uL BASO x10^3 0.04 0.01 - 0.09 10*3/uL Your prescriptions today are: albuterol , prednisone You will need to follow-up with your Primary Care Provider: 3 day(s) You need to self quarantine until you have a negative covid19 PCR test. If you do not have a primary care provider, you will need to arrange for your own. If you need assistance with this, the discharge planners can help you identify resources appropriate for you. See further medical attention for: severe pain, worsening symptoms, or any other concern. AttachmentsThe following attachments cannot be sent through Care Everywhere. Coronavirus Disease 2019 (COVID-19) (Italian)Coronavirus Disease 2019 (COVID- 19): Prevention (Italian)Coronavirus Disease 2019: Caring for Yourself and Others (Italian)Viral Syndrome (Adult) (Italian)documented in this encounter Plan of Treatment Date Type Specialty Care Team Description 11/17/2019 Office Visit Orthopedic Surgery Pebbles Bower, CUSTODIAL WORKER [address] [facility] [address] [place] [address] [phone] Name Type Priority Associated Diagnoses Date/Ti me CORONAVIRUS COVID-19 LAB STAT COVID-19 020 4:02 PM CDT TESTING Name Type Priority Associated Diagnoses Order S chedule CORONAVIRUS COVID-19 LAB Routine COVID-19 ONCE fo r 1 Occurrences TESTING starting 2019 until 10/18/2019 Health Maintenance Due Date Last Done Comments VARICELLA VACCINES (1 of 2 - 2-dose childhood series) 1990 PNEUMOCOCCAL 0-64 YEARS COMBINED SERIES (1 of 1 - 10/28/1995 PPSV23) DTaP,Tdap,and Td Vaccines (1 - Tdap) 2000 INFLUENZA VACCINE (Season Ended) 2019 08/18/2014 Depression Screening 10/16/2020 10/17/2019 documented as of this encounter Procedures Procedure Name Priority Date/Time Associated Comments Diagnosis CBC WITH DIFFERENTIAL STAT 10/18/2019 4:46 COVID-19 Re sults for this PM CDT procedure are i n the results section. CBC WITH DIFFERENTIAL STAT 10/18/2019 4:46 COVID-19 Re sults for this PM CDT procedure are i n the results section. COMP. METABOLIC PANEL STAT 10/18/2019 4:46 COVID-19 Re sults for this ([id number]) PM CDT procedure are i n the results section. POCT RAPID STREP BENJAMIN 10/18/2019 3:01 COVID-19 Results for this SCREEN FOR GROUP A PM CDT procedure are in the results section. COVID-19 (ID NOW STAT 10/18/2019 2:37 COVID-19 Results for this RAPID TESTING) PM CDT procedure are in the results section. documented in this encounter Results CBC WITH DIFFERENTIAL (10/18/2019 4:46 PM CDT) Pathologist Sig nature WBC 10.73 (H) 4.20 - 10.70 [facility] 10*3/L SERVICES RBC 5.71 (H) 4.26 - 5.52 [facility] 10*6/L SERVICES HGB 15.3 12.2 - 16.4 [facility] g/dL SERVICES HCT 44.1 38.4 - 49.3 % [facility] MCV 77.2 (L) 81.7 - 95.6 fL [facility] MCH 26.8 26.1 - 32.7 pg [facility] MCHC 34.7 31.2 - 35.0 [facility] g/dL SERVICES RDW-SD 36.3 (L) 38.5 - 51.6 fL [facility] RDW-CV 13.2 12.1 - 15.4 % [facility] PLT 228 150 - 328 [facility] 10*3/L SERVICES MPV 10.8 9.8 - 13.0 fL [facility] NRBC/100 WBC 0.0 0.0 - 10.0 /100 [facility] WBCs SERVICES NRBC x10^3 <0.01 10*3/L [facility] GRAN MAT (NEUT) % 80.7 % [facility] IMM GRAN % 0.60 % [facility] LYMPH % 6.9 % [facility] MONO % 10.9 % [facility] EOS % 0.5 % [facility] BASO % 0.4 % [facility] GRAN MAT x10^3(ANC) 8.67 (H) 1.99 - 6.95 [facility] 10*3/uL SERVICES IMM GRAN x10^3 0.06 0.00 - 0.06 [facility] 10*3/uL SERVICES LYMPH x10^3 0.74 (L) 1.09 - 3.23 [facility] 10*3/uL SERVICES MONO x10^3 1.17 (H) 0.36 - 1.02 [facility] 10*3/uL SERVICES EOS x10^3 0.05 (L) 0.06 - 0.53 [facility] 10*3/uL SERVICES BASO x10^3 0.04 0.01 - 0.09 [facility] 10*3/uL SERVICES Specimen Blood - ARM, RIGHT Performing Organization Address City/State/Zipcode Phone Number [facility] CLIA: [id number], [address] [place], [place] [address] [facility] COMP. METABOLIC PANEL ([id number]) (10/18/2019 4:46 PM CDT) Pathologist Sig nature NA 136 135 - 145 [facility] mmol/L SERVICES K 4.4 3.5 - 5.0 [facility] mmol/L SERVICES CL 97 (L) 98 - 108 mmol/L [facility] CO2 TOTAL 26 23 - 31 mmol/L [facility] AGAP 13 2 - 16 [facility] BUN 13 7 - 23 mg/dL [facility] GLUCOSE 106 70 - 110 mg/dL [facility] CREATININE 1.03 0.60 - 1.25 [facility] mg/dL SERVICES TOTAL BILI 1.7 (H) 0.1 - 1.1 mg/dL [facility] CALCIUM 10.3 8.6 - 10.6 [facility] mg/dL SERVICES T PROTEIN 8.3 (H) 6.3 - 8.2 g/dL [facility] ALBUMIN 5.0 3.5 - 5.0 g/dL [facility] ALK PHOS 61 34 - 122 U/L [facility] ALTv 101 (H) 5 - 50 U/L [facility] AST(SGOT) 66 (H) 13 - 40 U/L [facility] eGFR Calculation 85.4 mL/min/1.73m2 [facility] (Non- SERVICES [place]ian) eGFR Calculation 103.5 mL/min/1.73m2 [facility] () SERVICES Specimen Blood - ARM, RIGHT Narrative Performed At Association of Glomerular Filtration Rate (GFR) and St aging [facility] of Kidney Disease* + + +------- ------ + | GFR (mL/min/1.73 m2) | With Kidney Damage | Wi thout Kidney Damage + + +------- ------ + | >90 | Stage one | Normal + + +------- ------ + | 60-89 | Stage two | Decreased GFR + + +------- ------ + | 30-59 | Stage three | Stage three + + +------- ------ + | 15-29 | Stage four | Stage four + + +------- ------ + | <15 (or dialysis) | Stage five | Stage five + + +------- ------ + *Each stage assumes the associated GFR level has been in effect for at least three months. Stages 1 to 5, wit h or without kidney disease, indicate chronic kidney disease. Notes: Determination of stages one and two (with eGFR >59mL/min/1.73 m2) requires estimation of kidney damag e for at least three months as defined by structural or func tional abnormalities of the kidney, manifested by either: Pathological abnormalities or Markers of kidney damage (including abnormalities in the composition of the blo od or urine or abnormalities in imaging tests) . Performing Organization Address City/State/Zipcode Phone Number [facility] CLIA: [id number], [address] [place], [place] [address] [facility] POCT RAPID STREP SCREEN FOR GROUP A (10/18/2019 3:01 PM CDT) Pathologist Sig nature POCT GP A STREP Negative Negative - Negative Specimen Swab - THROAT COVID-19 (ID NOW RAPID TESTING) (10/18/2019 2:37 PM CDT) SARS-CoV-2 Rapid ID Not Detected Not Detected [facility] NOW SERVICES Specimen Swab - NASOPHARYNGEAL SWAB Narrative Performed At ID NOW COVID-19 Assay is an isothermal nucleic acid [facility] amplification test intended for the qualitative detect ion of nucleic acid from SARS-CoV-2 viral RNA in nasopharynge al (ROLLOFF TRUCK DRIVER) specimens. It is used under Emergency Use Authori zation (EUA) by FDA. The limit of detection (LOD) of the assa y is 125 Genome Equivalents/mL. A positive result is indicative of the presence of SARS-CoV-2 RNA. Clinical correlation with patient hi story and other diagnostic information is necessary to deter mine patient infection status. A negative (Not Detected) result does not preclude SARS-CoV-2 infection. In patients with clinical sympto ms and other tests that are consistent with SARS-CoV-2 infect ion, negative results should be treated as presumptive nega tive and a new specimen should be tested with alternative P CR molecular test. Invalid: Please collect a new specimen for repeat freya ent testing if clinically indicated. Performing Organization Address City/State/Zipcode Phone Number [facility] CLIA: [id number], [address] [place] [address] [facility] documented in this encounter Visit Diagnoses Diagnosis COVID-19 - Primary documented in this encounter Administered Medications Medication Order MAR Action Action Date Dose Rate Site acetaminophen (TYLENOL) tablet Given 10/18/2019 2:38 PM CDT 650 mg 650 mg 650 mg, Oral, ONCE, 1 dose, 10/18/19 at 1445, BENJAMIN albuterol (VENTOLIN) inhaler 2 Puff Given 10/18/2019 2:38 PM CDT 2 Puffs 2 Puff, Inhalation, ONCE, 1 dose, 10/18/19 at 1515, BENJAMIN, Is this order for a patient with suspected or confirmed COVID-19 infection? Yes NaCl 0.9% (NS) bolus infusion New Bag 10/18/2019 4:46 PM CDT 2,000 mL 999 mL/hr 2,000 mL at 999 mL/hr, 2,000 mL, IV Infusion, ONCE, 1 dose, 10/18/19 at 1715, STAT documented in this encounter Insurance Payer Benefit Plan Subscriber ID Effective Dates Phone Address Type / Group [facility] [id number] 2019-Tim [phone] [address] PPO/POS [place] SELECT t 7 [id number] [place] [address] documented as of this encounter"
--- OUTSIDE RECORDS SUMMARY | 2020-01-11 17:26 | XMS REPORT | Summary of Care ---
:1990 Author Organization [facility] Address [address] [place] [address] Care Team Providers Name Role Phone Clint Javed MD Primary Care Provider Reason for Visit Reason Comments Results Forms Encounter Details Date Type Department Care Team Description 10/18/2019 Telephone [facility] Primary Jennifer López R esults; Forms [facility] [address] [place] [address] [place], [place] [address] Allergies Active Allergy Reactions Severity Noted Date [...] 11/17/2019 Office Visit Orthopedic Surgery Pebbles Bower, OBSTETRICS/GYNECOLOGY NURSE [address] [facility] [address] [place] [address] [phone] Health Maintenance Due Date Last Done Comments VARICELLA VACCINES (1 of 2 - 2-dose childhood series) 1990 PNEUMOCOCCAL 0-64 YEARS COMBINED SERIES (1 of 1 - 10/28/1995 PPSV23) DTaP,Tdap,and Td Vaccines (1 - Tdap) 2000 INFLUENZA VACCINE (Season Ended) 2019 08/18/2014 Depression Screening 10/16/2020 10/17/2019 documented as of this encounter Results HEPATIC FUNCTION PANEL ([id number]) (ALB,T.PRO,BILI T,BU/BC,ALT,AST,ALK PHOS) (10/17/2019 2:26 PM CDT) Pathologist Sig nature TOTAL BILI 1.7 (H) 0.1 - 1.1 mg/dL [facility] BILI UNCON 1.7 (H) 0.1 - 1.1 mg/dL [facility] BILI CONJ 0.0 0.0 - 0.3 mg/dL [facility] T PROTEIN 8.4 (H) 6.3 - 8.2 g/dL [facility] ALBUMIN 5.0 3.5 - 5.0 g/dL [facility] ALK PHOS 56 34 - 122 U/L [facility] ALTv 81 (H) 5 - 50 U/L [facility] AST(SGOT) 49 (H) 13 - 40 U/L [facility] Specimen Blood Performing Organization Address City/State/Zipcode Phone Number [facility] CLIA: [id number], [address] [place], [place] [address] [facility] documented in this encounter Visit Diagnoses Diagnosis Elevated ALT measurement - Primary Nonspecific elevation of levels of trans aminase or lactic acid dehydrogenase (LDH) documented in this encounter Insurance Payer Benefit Plan Subscriber ID Effective Dates Phone Address Type / Group [place] [id number] 2019-Presen [employer] RISK MGMT RISK MGMT t [employer] [place] [employer] [id number] 2019-Presen [phone] [address] PPO/POS [place] SELECT t 7 [id number] [place] [address] documented as of this encounter
--- OUTSIDE RECORDS SUMMARY | 2020-01-11 17:26 | XMS REPORT | Summary of Care ---
:1990 Author Organization [facility] Address [address] [place] [address] Care Team Providers Name Role Phone Clint Javed MD Primary Care Provider Reason for Visit Reason Comments Results Encounter Details Date Type Department Care Team Description 11/02/2019 Telephone [facility] Mike Grace MD Results Urgent Care [address] [facility] [address] [phone] [place] [address] [phone] Allergies Active Allergy Reactions Severity Noted Date Comments Latex Rash 05/18/2014 documented as of this encounter (statuses as of 11/02/2019) Medications Medication Sig Dispensed Refills Start Date [...] as of this encounter (statuses as of 11/02/2019) Active Problems Problem Noted Date Elevated LFTs [...] as of this encounter (statuses as of 11/02/2019) Immunizations Name Administration Dates Next Due Influenza [...] 11/17/2019 Office Visit Orthopedic Surgery Pebbles Bower, BINDING PRINTER [address] [facility] [address] [place] [address] [phone] Health Maintenance Due Date Last Done Comments [...] Indicated Resolved Time COVID-19 Confirmed 10/19/2019 11/01/2019 COVID-19 Rule Out 11/01/2019 11/01/2019 11/02/2019 10: 12 AM CDT documented as of this encounter Insurance Payer Benefit Plan Subscriber ID Effective Dates Phone Address Type / Group [place] [id number] 2019-Presen WCI RISK MGMT RISK MGMT t [employer] [place] [id number] 2019-Presen [phone] [address] PPO/POS [place] SELECT t [id number] [place] [address] documented as of this encounter
--- OUTSIDE RECORDS SUMMARY | 2020-01-11 17:27 | XMS REPORT | Summary of Care ---
:1990 Author Organization [facility] Address [address] [place] [address] Care Team Providers Name Role Phone Pcp, Patient Does Not Have A Primary Care Provider +[id number] 0-0000 Reason for Visit Reason Comments Error Encounter Details Date Type Department Care Team Description 11/27/2019 Telephone [facility] Primary Valeriano López FNP [facility] [address] [place] [address] [place] [address] [place], [place] [address] Allergies Active Allergy Reactions Severity Noted Date Comments Latex Rash 05/18/2014 documented as of this encounter (statuses as of 11/27/2019) Medications Medication Sig Dispensed Refills Start Date [...] Active tabletIndications: mouth at bedtime. Dysuria OTC predniSONE 20 mg Take 40 mg (2 10 tablet 0 10/18/2019 Active tabletIndications: tablets) daily for COVID-19 5 days benzonatate 100 mg Take 1 capsule by 14 capsule 0 11/08/2019 Active capsuleIndications: mouth 3 (three) Chest pain, times daily as unspecified type, needed for Cough. COVID-19 virus infection, Acute respiratory disease due to COVID-19 virus, Cough documented as of this encounter (statuses as of 11/27/2019) Active Problems Problem Noted Date Elevated LFTs [...] as of this encounter (statuses as of 11/27/2019) Immunizations Name Administration Dates Next Due Influenza Virus Vaccine 08/18/2014 documented as of this encounter Social History Tobacco Use Types Packs/Day Years Used Date Former Smoker Cigarettes Quit: 06/20/19 14 Smokeless Tobacco: Former User Chew Q uit: 02/2017 Alcohol Use Drinks/Week oz/Week Comments Yes ocassionaly Sex Assigned at Date Recorded Not on file COVID-19 Exposure Response Date Recorded In the last month, have you been in contact with Yes 11/08/2019 11:37 AM CDT someone who was confirmed or suspected to have Coronavirus / COVID-19? documented as of this encounter Last Filed Vital Signs Not on filedocumented in this encounter Plan of Treatment Date Type Specialty Care Team Description 01/10/2020 Office Visit Gastroenterology Evelia Eli, ACNP [address] [facility] [address] [place] [address] [phone] Health Maintenance Due Date Last Done Comments PNEUMOCOCCAL 0-64 YEARS COMBINED 10/28/1995 SERIES (1 of 1 - PPSV23) INFLUENZA VACCINE (#1) 2019 08/18/2014 Depression Screening 10/16/2020 10/17/2019 DTaP,Tdap,and Td Vaccines (1 - 10/24/2020 P ostponed from 2008 Tdap) (Refused) VARICELLA VACCINES (1 of 2 [...] Group [facility] OFF OF ST OFF OF [id number] 2019-Tim [facility]CI RISK MGMT RISK MGMT t [employer] [place] [id number] 2019-Tim [phone] [address] PPO/POS [place] [employer] t 7 [id number] [place] [address] documented as of this encounter
--- OUTSIDE RECORDS SUMMARY | 2020-01-11 17:27 | XMS REPORT | Summary of Care ---
:1990 Author Organization [facility] Address [address] [place] [address] Care Team Providers Name Role Phone Pcp, Patient Does Not Have A Primary Care Provider +[id number] 0-0000 Reason for Visit Reason Comments Forms Work Excuse Encounter Details Date Type Department Care Team Description 12/01/2019 Telephone [facility] Ajay Hodges FNP Forms; Work Excuse Urgent Care [address] [address] [address] [place], [place] [address] [place] [address] [phone] Allergies Active Allergy Reactions Severity Noted Date Comments Latex Rash 05/18/2014 documented as of this encounter (statuses as of 12/01/2019) Medications Medication Sig Dispensed Refills Start Date [...] as of this encounter (statuses as of 12/01/2019) Active Problems Problem Noted Date Elevated LFTs [...] as of this encounter (statuses as of 12/01/2019) Immunizations Name Administration Dates Next Due Influenza [...] Signs Not on filedocumented in this encounter Miscellaneous Notes Telephone Encounter - Ruth Ann Albright LVN - 12/01/2019 2:58 PM CDTCalled patient regarding work excuse.Left message for patient to call back and state what information is needed in letter. elephone Encounter - Gricel Jones - 12/01/2019 11:21 AM Nicolás Melida is a 29 year old male whose work isn't accepting the work note. They need a medical fact on it to accept. Please advise, thank you. documented in this encounter Plan of Treatment Date Type Specialty Care Team Description 12/02/2019 Laboratory Only Phlebotomy Only, Pcp Test 01/10/2020 Office Visit [facility]velia [facility], [facility] [address] [facility] [address] [place] [address] [phone] Health Maintenance Due Date Last Done Comments PNEUMOCOCCAL 0-64 YEARS COMBINED 10/28/1995 SERIES (1 of 3 - PCV13) INFLUENZA VACCINE (#1) 2019 08/18/2014 Depression Screening [...] Group ST OFF OF ST OFF OF [id number] 2019-Tim [facility] RISK MGMT RISK MGMT t [employer] [facility] [id number] 2019-Tim [phone] [address] PPO/POS [place] SELECT t 7 [id number] [place] [address] documented as of this encounter
--- OUTSIDE RECORDS SUMMARY | 2020-01-11 17:27 | XMS REPORT | Summary of Care ---
:1990 Author Organization [facility] Address [address] [place] [address] Care Team Providers Name Role Phone Pcp, Patient Does Not Have A Primary Care Provider +[id number] 0-0000 Reason for Referral (Routine) Status Reason Specialty Diagnoses / Referred By Referred To Procedures Contact Contact New Request Cardiology Diagnoses Palpitations [place], Procedures CONSULT/REFERRAL CARDIOLOGY MD Ángel [address] [place] [address] (Routine) Status Reason Specialty Diagnoses / Referred By Referred To Procedures Contact Contact New Request Gastroenterology Diagnoses Elevated liver enzymes Elevated bilirubin [place], Procedures CONSULT/REFERRAL HEPATOLOGY MD Ángel [address] [place] [address] Reason for Visit Reason Comments DIZZY Encounter Details Date Type Department Care Team Description 12/21/2019 Office Visit [facility] Primary [place], Elevated liver enzymes (Primary Dx); [facility] Elevated bilirubin; [address] [address] [address] Mode rate persistent asthma without complication; [address] [place] [address] [phone] Allergies Active Allergy Reactions Severity Noted Date Comments Latex Rash 05/18/2014 documented as of this encounter (statuses as of 01/01/2020) Medications Medication Sig Dispensed Refills Start Date End Date Status tobramycin 0.3 % Place 1 Drop in 1 Bottle 0 04/26/2016 Active ophthalmic drops right eye 4 (four) times daily. azithromycin 2 tabs now then 1 Package 0 07/16/2017 Active (ZITHROMAX Z-SHERRY) 1 tab daily for 250 mg 4 days tabletIndications: Bronchitis albuterol 90 Inhale 2 Puffs 8.5 g 11 08/10/2019 A ctive mcg/actuation every 4 (four) inhalerIndications hours as needed : Moderate asthma for Wheezing or with exacerbation, Shortness of unspecified Breath. whether persistent predniSONE 20 mg Take 1 tablet 6 tablet 0 08/10/2019 Active tabletIndications: by mouth 2 Moderate asthma (two) times with exacerbation, daily. unspecified whether persistent cetirizine Take 1 tablet 30 tablet 11 08/10/2019 Acti ve (ZYRTEC) 10 mg by mouth daily. tabletIndications: Acute seasonal allergic rhinitis Melatonin 5 mg Take 1 tablet 0 08/10/2019 Active tabletIndications: by mouth at Dysuria bedtime. OTC predniSONE 20 mg Take 40 mg (2 10 tablet 0 10/18/2019 Active tabletIndications: tablets) daily COVID-19 for 5 days benzonatate 100 mg Take 1 capsule 14 capsule 0 11/08/2019 Active capsuleIndications by mouth 3 : Chest pain, (three) times unspecified type, daily as needed COVID-19 virus for Cough. infection, Acute respiratory disease due to COVID-19 virus, Cough Fluticasone-Salmet Inhale 1 Puff 60 Each 5 12/21/2019 Active prabha (ADVAIR every 12 DISKUS) 500-50 (twelve) hours. mcg/dose inhalation diskIndications: Moderate persistent asthma without complication montelukast Take 1 tablet 30 tablet 2 12/21/2019 Act mary ann (SINGULAIR) 10 mg by mouth at tabletIndications: bedtime. Moderate persistent asthma without complication fluticasone Inhale 1 Puff 60 Each 11 08/10/2019 Dis continued propion-salmeterol every 12 0 250-50 mcg/dose (twelve) hours. inhalation diskIndications: Mild persistent asthma, unspecified whether complicated documented as of this encounter (statuses as of 01/01/2020) Active Problems Problem Noted Date Elevated LFTs [...] as of this encounter (statuses as of 01/01/2020) Immunizations Name Administration Dates Next Due Influenza [...] been in contact with No / Unsure 12/21/2019 1:42 PM CDT someone who was confirmed or suspected to have Coronavirus / COVID-19? documented as of this encounter Last Filed Vital Signs Vital Sign Reading Time Taken Comments Blood Pressure 121/70 12/21/2019 1:56 PM CDT Pulse 85 12/21/2019 1:56 PM CDT Temperature 36.7 C (98.1 F) 12/21/2019 1:56 PM CDT Respiratory Rate 17 12/21/2019 1:56 PM CDT Oxygen Saturation 98% 12/21/2019 1:56 PM CDT Inhaled Oxygen Concentration - - Weight 90.3 kg (199 lb) 12/21/2019 1:56 PM CDT Height 175.3 cm (5' 9") 12/21/2019 1:56 PM CDT Body Mass Index 29.39 12/21/2019 1:56 PM CDT documented in this encounter Patient Instructions Patient InstructionsÁngel Mohamud MD - 12/21/2019 2:00 PM CDT Patient Education Understanding Heart Palpitations Heart palpitations are the feeling you have when your heartbeat seems to be racing, pounding, skipping, or fluttering. Heart palpitations are most often felt in the chest. Sometimes, they may also be felt in the neck. What causes heart palpitations? In most cases, heart palpitations are caused by: Stress or anxiety Exercise Some medicines Caffeine Nicotine Alcohol Illegal drugs, such as cocaine Health problems, such as anemia or overactive thyroid Many heart palpitations are harmless. But in some cases, palpitations may be caused by a problem with the heart such as an abnormal heart rhythm (arrhythmia). They may need to be managed by you and your healthcare provider or treated right away. How are heart palpitations treated? Treatments for heart palpitations depend on the cause. Options may include: Managing the things that trigger your heart palpitations. This could mean: ? Learning ways to reduce stress and anxiety ? Staying away from caffeine, nicotine, alcohol, and illegal drugs ? Stopping the use of certain medicines, under your doctors guidance Medicines, procedures, or surgery to treat an arrhythmia or other health problem that is causing your symptoms What are possible complications of heart palpitations? Complications of heart palpitations are rare unless they are caused by a problem such as an arrhythmia. In such cases, complications can include: Fainting Heart failure. This problem occurs when the heart is so weak it no longer pumps blood well. Blood clots and stroke Sudden cardiac arrest. This problem occurs when the heart suddenly stops beating. When should I call my healthcare provider? Call your healthcare provider right away if you have any of these: Palpitations that prevent you from sleeping or otherwise affect your quality of life. Symptoms that dont get better with treatment, or symptoms that get worse New symptoms, such as chest pain, shortness of breath, dizziness, or fainting [employer] last reviewed this educational content on 09/18/201819995990-0976 The [employer]. [address] [place] [address], [place] [address]. All rights reserved. This information is not intended as a substitute for professional medical care. Always follow your healthcare professional's instructions. Patient Education Asthma What is asthma? Asthma is a long-term (chronic) ?lung disease.The airways react to triggers (allergens and irritants). This makes it hard to breathe. With exposure to triggers, these changes occur: The airways become swollen and inflamed. The muscles around the airways tighten. Moremucus is made. This leads to mucus plugs. All of these changes make the airways narrow. This makes it hard for air to go out of the lungs. Andfresh oxygen can't get into the body. What causes asthma? Experts don't know the exact cause of asthma. They believe it is partly inherited.The environment,infections, and chemicals released by the body also play a role. Exercise causes symptoms in many people with asthma. Symptoms can occur during exercise. They can also occur right after exercise. In some people, stress or strong feelings can cause symptoms. All of these may be asthma triggers: Allergens Respiratory problem Pollens (trees, grasses, and weeds) Mold Pets Dust and dust mites Cockroaches Mice Nasal allergies Sinus infections The flu Viral infections, including the common cold Irritants Medicines Strong odors from perfumes, insulation estimator, cooking, paints, and varnishes Chemicals (gases, fumes) Air pollution Changing weather (temperature, barometric pressure, humidity, and strong winds) Smoke (tobacco-inhaled or secondhand) Aspirin NSAIDs (nonsteroidal anti-inflammatory drugs) such as ibuprofen Other conditions GERD (gastroesophageal reflux) Sleep apnea Overweight Depression Other Exercise, especially in cold weather Strong feelings that go along with laughing or crying Who is at risk for asthma? It is most common in: Children and teens ages 5 to17 Peopleliving in cities Other factors include: Personal or family history of asthma or allergies Exposure to secondhand tobacco smoke Children with a family history of asthma Children who have allergies or atopic dermatitis Children exposed to secondhand and tobacco smoke What are the symptoms of asthma? Symptoms include: Trouble breathing or shortness of breath Chest tightness Wheezing or a whistling sound when breathing Coughing Breathing becomes harder and may hurt Talking and sleeping may be harder with severe symptoms How is asthma diagnosed? Your healthcare provider will ask about your health history. He or she will give you a physical exam. You will also have other tests. An important test is spirometry. A spirometer is a device used to find out how well thelungs are working. Itmeasures the amount and speed of air breathed out. You may have other tests. These are done to check for conditions such as allergies. How is asthma treated? Treatment will depend on your symptoms, age, and general health. It will also depend on how severe the condition is. There is no cure for asthma. Itcanoften be controlled by staying away from triggers. And by taking medicines as prescribed by your healthcare provider. Watching symptoms is a restrepo part of asthma care. So is knowing what to do if symptoms get worse. Experts advise making an Asthma Action Plan with your provider. Medicines for asthma The 2 types of asthma medicines arelong-term control and short-term (quick- relief) medicines. Long-term control medicines are often taken every day. They help prevent symptoms. Quick-relief medicinescalm asthma symptoms fast. But they only last for a short time. You may take either type of medicinealone. Some people take both. Your healthcare provider should regularly check and adjust your medicines as needed. Long-term control medicines At first, it may take a few weeks for long-term control medicines to work. You must take these medicines every day. These medicines include: Anti-inflammatory medicines.These medicines reduce or prevent airway swelling. Bronchodilators. These relax muscles around the airways. Leukotriene modifiers.These block the action of chemicals called leukotrienes. These are chemicals that cause airways to be inflamed and narrowed. Anti-IgE(omalizumab).This medicine reduces allergic reactions. It is a shot (injection) given 1or 2 times a month. It is often used when asthma is harder to control. Anti-IL-5 (Interleukin-5) agents. These are given by injection in a provider's office. They blocka chemical in the body called IL-5. Quick-relief medicines Quick-relief medicines quickly relax the muscles around the airways. But the relief only lasts about2 to 3 hours. These medicines may include: Inhaled short-acting beta2-agonists . These help relax muscles around the airways. Inhaled anticholinergics . These block a chemical in the body called acetylcholine. This chemicalcontracts the muscles. It also causes more mucusin the airways. Inhalation devices for asthma Inhaled medicines goright to the lungs. There have fewer side effects than medicines taken by mouth. Inhaledmedicinesmay be anti-inflammatory or bronchodilating. Or they may be both. The devices used are: Metered-dose inhaler (MDI).This is the most common type of inhaler. It uses a chemical to push the medicine out of the inhaler. MDIs are held in front of or put into the mouth. Then the medicine is released in puffs. Or they may be used with a spacer device. Nebulizer.This device sprays a fine mist of medicine. This is done through a mask usingair under pressure, or an ultrasonic machine. A mouthpiece or maskis connected to a machine by plastic tubing to deliver medicine. Dry powder or rotary inhaler.These inhalers deliver powered medicine as you breathe. Living with asthma Staying away from triggers is restrepo in managing asthma. Triggers may be allergens, irritants, other health problems, exercise, medicines, and strong emotions.The following can help youlimit your exposure: Allergies Dust.Dust is the most common year-round allergen. The allergy is caused by tiny dust mites. Dust mites are found in mattresses, carpets, and fabric-covered (upholstered) furniture such as sofas and chairs. They live best in warm, humid conditions. It's important to limit your exposure. Take extracare in the bedroom. Put dust mite covers on your mattress, box spring, and pillows. Pollens. You may be allergic to pollen. If so, during pollen season keep all car and house windows closed. Use air conditioning. If you are outside, shower, wash your hair, and change clothes whenyou go inside. Pets.Pets that have fur or feathers often cause allergies. If you have pets, try not to touch them. If you do pet or handle them, wash your hands afterward. Keep pets off your bed and out of your bedroom. Have someone brush and bathe your pet often. Mold and mildew.These can trigger asthma. When outside, stay away from damp, shady areas. Use exhaust fans when cooking or bathing. Keep indoor humidity below 45%. And drain and clean your dehumidifier often. Exercise Exercise is a common asthma trigger. But don't limit sports or exercise unless a healthcare providertells you to. Exercise is good for your health and lungs. Swimming, golf, and karate are good choices if you have asthma. Always warm up before exercise. And cool down after. Ask your provider about using your quick- relief medicine before starting exercise. Irritants If you smoke, quit. Stay away from smoke. Dont use wood stoves or kerosene heaters. Also stay away from strong perfumes, cleaning products, fresh paint, and other things with strong odors. Medicines Some medicines can make asthma symptoms worse. These medicines include aspirin, NSAIDs (nonsteroidalanti-inflammatory drugs), andbeta-blockers.Talk withyour providerabout your asthma history and medicine use. Other health problems Some health problems can make it harder to control asthma. These include: Respiratory infections such as colds and the flu GERD (gastroesophageal reflux) and heartburn Being overweight Sleep apnea Depression Work with your provider to treat any of these problems. Strong emotions The strong feelings that go with laughing and crying can trigger asthma symptoms. You can learn how to better manage your emotions. Restrepo points about asthma Asthma is a long-term (chronic) lung disease. Triggers irritate sensitive airways. This makes it hard to breathe. Staying away from triggers is an important part of treatment. Long-term medicines control symptoms. They are taken every day, even when you feel well. Rescue medicines provide quick symptom relief. But they are short-term. Next steps Tips to help you get the most from a visit to your healthcare provider: Know the reason for your visit and what you want to happen. Before your visit, write down questions you want answered. Bring someone with you to help you ask questions and remember what your provider tells you. At the visit, write down the name of a new diagnosis, and any new medicines, treatments, or tests. Also write down any new instructions your provider gives you. Know why a new medicine or treatment is prescribed, and how it will help you. Also know what the side effects are. Ask if your condition can be treated in other ways. Know why a test or procedure is recommended and what the results could mean. Know what to expect if you do not take the medicine or have the test or procedure. If you have a follow-up appointment, write down the date, time, and purpose for that visit. Know how you can contact your provider if you have questions. [employer] last reviewed this educational content on 01/18/201819998670-9117 [employer]. [address] [place] [address], [place] [address]. All rights reserved. This information is not intended as a substitute for professional medical care. Always follow your healthcare professional's instructions. 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 HENT: Negative. Respiratory: Positive for shortness of breath and wheezing. Cardiovascular: Positive for chest pain and palpitations. Skin: Negative. Neurological: Positive for dizziness. Home Medications: No outpatient medications have been marked as taking for the 12/21/19 encounter (Office Visit) with Ángel Mohamud MD. Allergies: Allergies Allergen Reactions Latex Rash Histories: Past Medical History: Diagnosis Date Ankle sprain, right, initial encounter 05/16/2015 Asthma 07/27/2013 Elevated LFTs 11/01/2019 Tobacco abuse 08/17/2017 Past Surgical History: Procedure Laterality Date HERNIA REPAIR Family History Problem Relation Age of Onset Hypertension Mother Diabetes Father No Significant Medical Problems Sister Neurological Brother Autism Social History Tobacco Use Smoking status: Former Smoker Types: Cigarettes Quit date: 06/19/2013 Years since quittin.5 Smokeless tobacco: Former User Types: Chew Quit date: 02/2017 Substance Use Topics Alcohol use: Yes Comment: ocassionaly Drug use: No Physical Exam: BP 121/70 (BP Location: Left arm, Patient Position: Sitting, BP CUFF SIZE: Adult Medium) | Pulse 85 | Temp 36.7 C (98.1 F) | Resp 17 | Ht 5' 9" (1.753 m) | Wt 199 lb (90.3 kg) | SpO2 98% | BMI 29.39 kg/m Physical Exam Neurological: He is alert. No cranial nerve deficit. Gait normal. Appearance: patient alert and in no acute distress Head: normocephalic and atraumatic Cardiovascular: regular rate and rhythm, no murmur Respiratory: clear to auscultation and percussion, bilaterally Psychiatric: alert, oriented, with appropriate affect Skin: skin color, texture and turgor are normal; no bruising, rashes or lesions noted Assessment and Plan: Hernando Montez is a 29 year old male with the followin. Elevated liver enzymes 2. Elevated bilirubin Plan: - CONSULT/REFERRAL HEPATOLOGY 3. Moderate persistent asthma without complication Plan: - Fluticasone-Salmeterol (ADVAIR DISKUS) 500-50 mcg/dose inhalation disk; Inhale 1 Puff every 12 (twelve) hours. Dispense: 60 Each; Refill: 5 - montelukast (SINGULAIR) 10 mg tablet; Take 1 tablet by mouth at bedtime. Dispense: 30 tablet; Refill: 2 4. Palpitations Plan: - CONSULT/REFERRAL CARDIOLOGY This visit involved counseling and coordination of care that comprised more than 50% of the visit time. I spent 40 minute(s) total time with the patient. Of that time, 19 minute(s) was spent on history and exam, and 20 minute(s) was spent counseling the patient regarding risks and benefits of treatment, treatment options and prevention. In addition 1 minute(s) was spent on coordination of care with patient. Ángel Mohamud MD [facility] Family Medicine documented in this encounter Plan of Treatment Date Type Specialty Care Team Description 01/10/2020 Office Visit Gastroenterology Evelia Eli, [facility] [address] [facility] [address] [place] [address] [phone] 02/13/2020 Office Visit Cardiology Shaan Vera M D [address] [place], [place] [address] Health Maintenance Due Date Last Done Comments PNEUMOCOCCAL 0-64 YEARS COMBINED 10/28/1995 SERIES (1 of 3 - PCV13) INFLUENZA VACCINE (#1) 2020 08/18/2014 Postponed from 12/20/2019 (Vaccine not cy ilable) Depression Screening 10/16/2020 10/17/2019 DTaP,Tdap,and Td Vaccines (1 - 10/24/2020 P ostponed from 2008 Tdap) (Refused) VARICELLA VACCINES ( of 2 - 10/24/2020 Pos tponed from 1990 2-dose childhood series) (Altern ative Guidelines) documented as of this encounter Results Not on filedocumented in this encounter Visit Diagnoses Diagnosis Elevated liver enzymes - Primary Nonspecific elevation of levels of trans aminase or lactic acid dehydrogenase (LDH) Elevated bilirubin Disorders of bilirubin excretion Moderate persistent asthma without compl ication Unspecified asthma Palpitations documented in this encounter Additional Health Concerns Infection Onset Date Last Indicated Resolved Time COVID-19 Confirmed 10/19/2019 11/01/2019 documented as of this encounter Insurance Payer Benefit Plan Subscriber ID Effective Dates Phone Address Type / Group [facility] Buy Local [place] [id number] 2019-Tim [phone] [address] PPO/POS [place] SELECT t [id number] [place] [address] documented as of this encounter
--- OUTSIDE RECORDS SUMMARY | 2020-01-11 17:27 | XMS REPORT | Summary of Care ---
:1990 Author Organization [facility] Address [address] [place] [address] Care Team Providers Name Role Phone Pcp, Patient Does Not Have A Primary Care Provider +[id number] 0-0000 Reason for Referral (Routine) Status Reason Specialty Diagnoses / Referred By Referred To Procedures Contact Contact New Request Cardiology Diagnoses Palpitations [place], Procedures CONSULT/REFERRAL CARDIOLOGY MD Ángel [address] [place] [address] (Routine) Status Reason Specialty Diagnoses / Referred By Referred To Procedures Contact Contact New Request Gastroenterology Diagnoses Elevated liver enzymes Elevated bilirubin [place], Procedures CONSULT/REFERRAL HEPATOLOGY MD Ángel [address] [place] [address] Reason for Visit Reason Comments DIZZY Encounter Details Date Type Department Care Team Description 12/21/2019 Office Visit [facility] Primary [place], Elevated liver enzymes (Primary Dx); [facility] [place] Neal MD Elevated bilirubin; [address] Mode rate persistent asthma without complication; [address] [place] [address] [phone] Allergies Active Allergy Reactions Severity Noted Date [...] pain, shortness of breath, dizziness, or fainting Breadcrumbtracking last reviewed this educational content on 09/18/201819995767-4134 The Risk Ident. [address] [place] [address], [place] [address]. All rights reserved. This information is not [...] cold Irritants Medicines Strong odors from perfumes, burlap spreader, cooking, paints, and varnishes Chemicals (gases, fumes) [...] contact your provider if you have questions. Breadcrumbtracking last reviewed this educational content on 01/18/201819996232-1395 The Risk Ident. [address] [place] [address], [place] [address]. All rights reserved. This information is not intended as a substitute for professional medical care. Always follow your healthcare professional's instructions. 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 Ángel Mohamud MD [facility] Family Medicine documented in this encounter Plan of Treatment Date Type Specialty Care Team Description 01/10/2020 Office Visit Gastroenterology Evelia Eli, [facility] [address] [facility] [address] [place] [address] [phone] 02/13/2020 Office Visit Cardiology Shaan Vera M D [address] [place], [place] [address] Health Maintenance Due Date [...] Effective Dates Phone Address Type / Group [facility] [employer] [id number] 2019-Tim [phone] [address] PPO/POS [place] [employer] t 7 [id number] [place] [address] documented as of this encounter
--- OUTSIDE RECORDS SUMMARY | 2020-01-11 17:27 | XMS REPORT | Summary of Care ---
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 [address] [place] [phone] Reason for Visit Reason Comments Shortness of Breath Encounter Details Date Type Department Care Team Description 11/08/2019 Emergency [facility] Rex Covington 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 TEACHER Chest pain, unspecified type (Primary Dx ); Department [address] [place] [address] COVID-19 virus infection; [address] [place] [address] Acute respir atory disease due to COVID-19 virus; [place] [address] [place], [place] [phone] [address] [phone] Allergies Active Allergy Reactions Severity Noted Date [...] Sign Reading Time Taken Comments Blood Pressure 147/99 11/08/2019 11:38 AM CDT Pulse 88 11/08/2019 11:38 AM CDT Temperature 36.2 C (97.1 F) 11/08/2019 11:38 AM CDT Respiratory Rate 22 11/08/2019 11:38 AM CDT Oxygen Saturation 97% 11/08/2019 11:38 AM CDT Inhaled Oxygen Concentration - - Weight 90.7 kg (200 lb) 11/08/2019 11:56 AM CDT Height - - Body Mass Index 29.53 10/17/2019 1:33 PM CDT documented in this encounter Discharge Instructions InstructionsRex Covington FNP - 11/08/2019 DIAGNOSIS ICD-10-CM ICD-9-CM 1. Chest pain, unspecified type R07.9 786.50 2. COVID-19 virus infection U07.1 3. Acute respiratory disease due to COVID-19 virus U07.1 J06.9 NO LIFE-THREATENING FINDINGS ON TODAY'S EXAM. SPECIAL CARE INSTRUCTIONS: Stay well hydrated Follow up with PCP Return to ER as needed FOLLOW-UP RECOMMENDATIONS: RECOMMEND FOLLOW-UP WITH A PRIMARY CARE PROVIDER OR SPECIALIST IN 2-5 DAYS, ESPECIALLY IF NO IMPROVEMENT IN SYMPTOMS. TO FOLLOW-UP WITHIN THE [facility], TRY THESE OPTIONS (CLINIC APPOINTMENTS AVAILABLE ON ZLEK-OF-MTJM BASIS): 1. SCHEDULE AN APPOINTMENT ONLINE AT WWW[facility] 2. OR CALL THE [facility] ACCESS CENTER AT OR 3. OR CALL YOUR [facility] PHYSICIAN'S OFFICE DIRECTLY IF YOU ARE ALREADY AN ESTABLISHED [facility] PATIENT. OR, YOU MAY FOLLOW-UP WITH A PROVIDER OF YOUR CHOICE, SUCH : 1. A PHYSICIAN OF YOUR CHOICE 2. [facility], . LOCATIONS IN [facility] 3. [facility], [address] [place], [place]; [phone] RETURN TO ER FOR WORSENING OF SYMPTOMS. AttachmentsThe following attachments cannot be sent through Care Everywhere. Coronavirus Disease 2019 (COVID-19) (Micronesian)Coronavirus Disease 2019: Caring for Yourself and Others (Micronesian)documented in this encounter Plan of Treatment Date Type Specialty Care Team Description 11/21/2019 Office Visit Orthopedic Surgery Pebbles Bower, CALCULUS TEACHER [address] [facility] [address] [place] [address] [phone] Health Maintenance Due Date Last Done Comments [...] ative Guidelines) documented as of this encounter Procedures Procedure Name Priority Date/Time Associated Diagnosis Comme nts XR CHEST 1 VW STAT 11/08/2019 12:36 PM Chest pain, Results for this CDT unspecified type procedure a re in the results section. N-TERMINAL PRO-BNP STAT 11/08/2019 12:04 PM Chest pain, Re sults for this CDT unspecified type procedure a re in the results section. CBC WITH DIFF STAT 11/08/2019 12:04 PM Chest pain, Results for this CDT unspecified type procedure a re in the results section. COMP. METABOLIC STAT 11/08/2019 12:04 PM Chest pain, Resul ts for this PANEL (10487) CDT unspecified type procedure are in the results section. TROPONIN I STAT 11/08/2019 12:04 PM Chest pain, Results for this CDT unspecified type procedure a re in the results section. EKG-12 LEAD BENJAMIN 11/08/2019 11:56 AM CDT documented in this encounter Results XR CHEST 1 VW (11/08/2019 12:36 PM CDT) Specimen Impressions Performed At PACS/VR/DOSE No acute intrathoracic abnormality, specifically no de tectable radiographic findings to suggest COVID-19 pneumonia. Disclaimer: Generally, the findings on c hest imaging in COVID-19 are not specific, and overlap with other infecti ons, including influenza, H1N1, SARS and MERS. According to the Centers for Disease Control (CDC) and recent statement of the [place] [employer], viral testing remai ns the only specific method of diagnosis. Confirmation with the viral test is required, even if radiologic findings are suggestive of CO VID-[address] Preliminary Report Dictated by Resident: Laila Bernard MD., have reviewe d this study and agree with the above report. Narrative Performed At EXAM: XR CHEST 1 VW PACS/VR/DOSE COMPARISON: Chest x-ray 08/19/2019 HISTORY: cough, SOB, Covid +mary ann TECHNIQUE: Frontal view of the chest was obtained. FINDINGS: Lungs/pleura: The lungs are clear. No focal consolid ation identified. No pleural effusion or pneumothorax is iden tified. Heart/Mediastinum: The cardiac silhouett e is normal in size. No acute osseous abnormality. Procedure Note [facility], Radiant Results Inft User - 2019 1:22 PM CDT EXAM: XR CHEST 1 VW COMPARISON: Chest x-ray 08/19/2019 HISTORY: cough, SOB, Covid +mary ann TECHNIQUE: Frontal view of the chest was obtained. FINDINGS: Lungs/pleura: The lungs are clear. No f ocal consolidation identified. No pleural effusion or pneumothorax is iden tified. Heart/Mediastinum: The cardiac silhouett e is normal in size. No acute osseous abnormality. IMPRESSION No acute intrathoracic abnormality, spec ifically no detectable radiographic findings to suggest COVID-19 pneumonia. Disclaimer: Generally, the findings on c hest imaging in COVID-19 are not specific, and overlap with other infecti ons, including influenza, H1N1, SARS and MERS. According to the Centers for Disease Con trol (CDC) and recent statement of the [place] [employer], viral testing remains the only specific method of diagnosis. Confirmation with t he viral test is required, even if radiologic findings are suggestive of CO VID-[address]. Preliminary Report Dictated by Resident: Yovani Caballero I, Laila Ortiz MD., have reviewed this study and agree with the above report. Performing Organization Address City/State/Zipcode Phone Number PACS/VR/DOSE TROPONIN I (11/08/2019 12:04 PM CDT) Pathologist Sig nature TROPONIN I 0.003 <=0.034 ng/mL [facility] Specimen Blood - ARM, LEFT Narrative Performed At Equal or Less than 0.034 ng/ml---Normal [facility] Note: Cardiac troponin begins to rise 3-4 hours after the onset of ischemia. Repeat in 4-6 hours if the sample w as drawn within 3-4 hours of the onset of the symptom and found normal. Between 0.035 and 0.120 ng/mL--- Borderline. Questiona ble myocardial injury or necrosis Note: Serial measurement may be necessary to confirm o r exclude the diagnosis of myocardial injury or necrosis ; Clinical correlation (symptoms, EKGs, imaging studies, and others) required; Repeat in 4-6 hours if clinically indicated. Equal or Higher than 0.121 ng/mL---Abnormal. Myocardia l Injury or Necrosis Likely Biotin has been reported to cause a negative bias, int erpret results relative to patient's use of biotin. Performing Organization Address City/State/Zipcode Phone Number [facility] CLIA: [id number], [address] [place], [place] [address] [facility] N-TERMINAL PRO-BNP (11/08/2019 12:04 PM CDT) Pathologist Sig nature NT-proBNP 27 <=125 pg/mL [facility] Specimen Blood - ARM, LEFT Narrative Performed At Biotin has been reported to cause a negative bias, int erpret [facility] results relative to patient's use of biotin. Performing Organization Address City/State/Zipcode Phone Number [facility] CLIA: [id number], [address] [place], [place] [address] [facility] COMP. METABOLIC PANEL ([id number]) (11/08/2019 12:04 PM CDT) Pathologist Sig nature NA 139 135 - 145 [facility] mmol/L SERVICES K 4.6 3.5 - 5.0 [facility] mmol/L SERVICES CL 101 98 - 108 mmol/L [facility] CO2 TOTAL 27 23 - 31 mmol/L [facility] AGAP 11 2 - 16 [facility] BUN 13 7 - 23 mg/dL [facility] GLUCOSE 93 70 - 110 mg/dL [facility] CREATININE 0.96 0.60 - 1.25 [facility] mg/dL SERVICES TOTAL BILI 1.5 (H) 0.1 - 1.1 mg/dL [facility] CALCIUM 10.1 8.6 - 10.6 [facility] mg/dL SERVICES T PROTEIN 8.3 (H) 6.3 - 8.2 g/dL [facility] ALBUMIN 4.9 3.5 - 5.0 g/dL [facility] ALK PHOS 52 34 - 122 U/L [facility] ALTv 75 (H) 5 - 50 U/L [facility] AST(SGOT) 57 (H) 13 - 40 U/L [facility] eGFR Calculation 92.0 mL/min/1.73m2 [facility] (Non- SERVICES [place]) eGFR Calculation 111.5 mL/min/1.73m2 [facility] () SERVICES Specimen Blood - ARM, LEFT Narrative Performed At Association of Glomerular Filtration Rate (GFR) and St aging [facility] of Kidney Disease* + [...] . Performing Organization Address City/State/Zipcode Phone Number [facility] CLIA: [id number], [address] [place], [place] [address] [facility] CBC WITH DIFF (11/08/2019 12:04 PM CDT) Pathologist Sig nature WBC 10.56 4.20 - 10.70 [facility] 10*3/L SERVICES RBC 5.45 4.26 - 5.52 [facility] 10*6/L SERVICES HGB 14.6 12.2 - 16.4 [facility] g/dL SERVICES HCT 42.3 38.4 - 49.3 % [facility] MCV 77.6 (L) 81.7 - 95.6 fL [facility] MCH 26.8 26.1 - 32.7 pg [facility] MCHC 34.5 31.2 - 35.0 [facility] g/dL SERVICES RDW-SD 36.1 (L) 38.5 - 51.6 fL [facility] RDW-CV 13.2 12.1 - 15.4 % [facility] PLT 296 150 - 328 [facility] 10*3/L SERVICES MPV 10.5 9.8 - 13.0 fL [facility] NRBC/100 WBC 0.0 0.0 - 10.0 /100 [facility] WBCs SERVICES NRBC x10^3 <0.01 10*3/L [facility] GRAN MAT (NEUT) % 59.4 % [facility] IMM GRAN % 1.60 % [facility] LYMPH % 28.6 % [facility] MONO % 8.9 % [facility] EOS % 0.8 % [facility] BASO % 0.7 % [facility] GRAN MAT x10^3(ANC) 6.28 1.99 - 6.95 [facility] 10*3/uL SERVICES IMM GRAN x10^3 0.17 (H) 0.00 - 0.06 [facility] 10*3/uL SERVICES LYMPH x10^3 3.02 1.09 - 3.23 [facility] 10*3/uL SERVICES MONO x10^3 0.94 0.36 - 1.02 [facility] 10*3/uL SERVICES EOS x10^3 0.08 0.06 - 0.53 [facility] 10*3/uL SERVICES BASO x10^3 0.07 0.01 - 0.09 [facility] 10*3/uL SERVICES Specimen Blood - ARM, LEFT Performing Organization Address City/State/Zipcode Phone Number [facility] CLIA: [id number], [address] [place], [place] [address] documented in this encounter Visit Diagnoses Diagnosis Chest pain, unspecified type - Primary COVID-19 virus infection Acute respiratory disease due to COVID-1 9 virus Cough documented in this encounter Administered Medications Medication Order MAR Action Action Date Dose Rate Site codeine-guaifenesin (ROBITUSSIN Given 11/08/2019 12:06 PM CDT 10 mL AC) 10-100 mg/5 mL solution 10 mL 10 mL, Oral, ONCE, 1 dose, 11/08/19 at 1300, BENJAMIN documented in this encounter Additional Health Concerns Infection Onset Date Last Indicated Resolved Time COVID-19 Confirmed 10/19/2019 11/01/2019 documented as of this encounter Insurance Payer Benefit Plan Subscriber ID Effective Dates Phone Address Type / Group [facility] [id number] 2019-Presen [phone] [address] PPO/POS [place] [employer] t 7 [id number] [place] [address] documented as of this encounter"
--- OUTSIDE RECORDS SUMMARY | 2020-01-11 17:27 | XMS REPORT | Summary of Care ---
:1990 Author Organization [facility] Address [address] [place] [address] Care Team Providers Name Role Phone Pcp, Patient Does Not Have A Primary Care Provider +1-000-00 0-0000 Reason for Visit Reason Comments Eye Problem Encounter Details Date Type Department Care Team Description 11/27/2019 Telemedicine Visit [facility] Unknown, Attendin g Headache disorder (Primary Dx); [facility] Blurry vision [address] [place] [phone] Allergies Active Allergy Reactions Severity Noted Date [...] persistent fluticasone Inhale 1 Puff 60 Each 08/10/2019 Act mary ann propion-salmeterol every 12 [...] Sign Reading Time Taken Comments Blood Pressure - - Pulse - - Temperature 36.7 C (98.1 F) 11/27/2019 3:03 PM CDT Respiratory Rate - - Oxygen Saturation - - Inhaled Oxygen Concentration - - Weight - - Height - - Body Mass Index - - documented in this encounter Progress Notes Handy Hodges FNP - 11/27/2019 3:00 PM CDT TELEHEALTH NOTE Verbal consent obtained from Patient: Hernando Montez due to the COVID-19 pandemic for telehealth services provided below. Communication with patient was conducted via Telephone due to patient unable to obtain video call option. Location of Patient: Home Location of Provider: Clinic Date of Service: 11/27/2019 Chief Complaint: blurred vision HPI: Hernando Montez is a 29 year old male with c/o headache and blurriness and informs me he requires a letter and so requesting a letter for work. 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 Drank a lot of gatorade and water. Informs me is is fine today but did not go into work. His urine color is also pale and no other complaints, drinking plenty of water. Requesting letter for work Past Medical History: Diagnosis Date Ankle sprain, right, initial encounter 05/16/2015 Asthma 07/27/2013 Elevated LFTs 11/01/2019 Tobacco abuse 08/17/2017 MEDICATIONS: Current Outpatient Medications Medication Sig Dispense Refill benzonatate 100 mg capsule Take 1 capsule by mouth 3 (three) times daily as needed for Cough. 14capsule 0 predniSONE 20 mg tablet Take 40 mg (2 tablets) daily for 5 days 10 tablet 0 albuterol 90 mcg/actuation inhaler Inhale 2 Puffs [...] current facility-administered medications for this visit. ROS 12 systems reviewed TELEHEALTH EXAM Deferred ASSESSMENT/ PLAN Hernando Montez is a 29 year old male with PMH as above presenting with: 1. Headache disorder 2. Blurry vision Informed patient to drink a lot of water. Rest May take Tyelnol/Motrin for headache States the blurry vision is better but still slight issues. Informed patient if this is true symptoms, then either come in or go to ER Pt agreed. Please go to ER if blurry vision persists and or headache worsens, currently treating with Tylenol. No other complaints noted. Requesting a letter for work, did not go in. Reassured patient to please go to ER if symptoms persists or worsen. After visit summary (AVS ) documentation will be available through RRsat for this encounter. A total of 25 minutes was spent on the Telephone due to patient unable to obtain video call option. DANIELE CastellanosP documented in this encounter Plan of Treatment Date Type Specialty Care Team Description 01/10/2020 Office Visit Gastroenterology Evelia Eli, ACNP [address] [facility] [address] [place] [address] [phone] Health Maintenance Due Date Last Done Comments [...] filedocumented in this encounter Visit Diagnoses Diagnosis Headache disorder - Primary Headache Blurry vision Other specified visual disturbances documented in this encounter Additional Health Concerns Infection Onset Date Last Indicated Resolved Time COVID-19 Confirmed 10/19/2019 11/01/2019 documented as of this encounter Insurance Payer Benefit Plan Subscriber ID Effective Dates Phone Address Type / Group [facility] [id number] 2019-Tim [phone] [address] PPO/POS [place] [employer] t 7 [id number] [place] [address] documented as of this encounter
--- NOTE | 2020-01-11 20:03 | RAD REPORT ---
EXAM DESCRIPTION: RAD - Chest Pa And Lat (2 Views) - 01/11/2020 7:52 pm CLINICAL HISTORY: CHEST PAIN Chest pain. COMPARISON: Chest Single View dated 11/04/2019 FINDINGS: The lungs are clear. The heart is normal in size. No displaced fractures. IMPRESSION: No acute or concerning finding suspected.
[2020-01-11 20:23] LABS: Absolute Lymphocytes (CBC) 2.7 K/uL (0.7-4.9); Basophils % 1.2 % (0-1.3); Hematocrit 40.6 % (39.6-49.0); Lymphocytes % 30.1 % (15.3-44.8); MPV 8.8 fL (7.6-11.3); RBC Red Blood Cell Count 5.24 M/uL (4.33-5.43)
[2020-01-11 20:35] LABS: Urine Blood NEGATIVE (NEG); Urine Glucose NEGATIVE (NEG); Urine Protein NEGATIVE (NEG); Urine Specific Gravity 1.025 (1.005-1.030)
[2020-01-11 20:47] LABS: ALT/SGPT 96 U/L (12-78); AST/SGOT 43 U/L (15-37); Albumin 4.2 g/dL (3.4-5.0); Alkaline Phosphatase 59 U/L (45-117); BUN Blood Urea Nitrogen 13 mg/dL (7-18); Bicarbonate 27 mmol/L (21-32); Bilirubin Direct 0.2 mg/dL (0-0.2); Bilirubin Total 1.2 mg/dL (0.2-1.0); Glucose Level 96 mg/dL (74-106); Magnesium 2.2 mg/dL (1.8-2.4); Potassium 3.7 mmol/L (3.5-5.1); Protein, Total 8.2 g/dL (6.4-8.2); Sodium Level 139 mmol/L (136-145); Troponin (Emerg Dept Use Only) < 0.02 ng/mL (0.0-0.045)
[2020-01-11] MEDS ORDERED: METOPROLOL XL 50 MG TAB PO ONE (20:53)
--- NOTE | 2020-01-11 21:57 | EDPHYS ---
Physician Documentation [facility] Name: Hernando Montez Age: 29 yrs Sex: Male : 1990 Arrival Date: 01/11/2020 Time: 17:25 Bed 23 Private MD: ED Physician Carl Salter HPI: 01/10 20:14 This 29 yrs old Male presents to ER via EMS with complaints of Palpitations. jose 20:14 The patient presents with a history of heart racing. Context: The symptoms occur with [facility] anxiety, with stress. Onset: The symptoms/episode began/occurred just prior to arrival. Duration: The patient or guardian reports a single episode, that is now resolved. Modifying factors: The symptoms are aggravated by nothing. The symptoms are alleviated by nothing. Associated signs and symptoms: The patient has no apparent associated signs or symptoms. Severity of symptoms: At their worst the symptoms were mild in the emergency department the symptoms have resolved. The patient has experienced similar episodes in the past, a few times. Historical: - Allergies: 17:54 No Known Allergies; ca1 - Home Meds: 17:54 Albuterol Inhl [Active]; Advair Diskus Inhl [Active]; Singulair Oral [Active]; ca1 - PMHx: 17:54 Asthma; Palpitations; ca1 - PSHx: 17:54 None; ca1 - Immunization history:: Adult Immunizations up to date. - Social history:: Smoking status: Patient denies any tobacco usage or history of. - Family history:: not pertinent. ROS: 20:14 Constitutional: Negative for fever, chills, and weight loss, Eyes: Negative for injury, jose pain, redness, and discharge, ENT: Negative for injury, pain, and discharge, Neck: Negative for injury, pain, and swelling, Respiratory: Negative for shortness of breath, cough, wheezing, and pleuritic chest pain, Abdomen/GI: Negative for abdominal pain, nausea, vomiting, diarrhea, and constipation, Back: Negative for injury and pain, : Negative for injury, bleeding, discharge, and swelling, MS/Extremity: Negative for injury and deformity, Skin: Negative for injury, rash, and discoloration, Neuro: Negative for headache, weakness, numbness, tingling, and seizure, Psych: Negative for depression, anxiety, suicide ideation, homicidal ideation, and hallucinations, Allergy/Immunology: Negative for hives, rash, and allergies, Endocrine: Negative for neck swelling, polydipsia, polyuria, polyphagia, and marked weight changes, Hematologic/Lymphatic: Negative for swollen nodes, abnormal bleeding, and unusual bruising. 20:14 Cardiovascular: Positive for palpitations. Exam: 20:14 Constitutional: This is a well developed, well nourished patient who is awake, alert, jose and in no acute distress. Head/Face: Normocephalic, atraumatic. Eyes: Pupils equal round and reactive to light, extra-ocular motions intact. Lids and lashes normal. Conjunctiva and sclera are non-icteric and not injected. Cornea within normal limits. Periorbital areas with no swelling, redness, or edema. ENT: Nares patent. No nasal discharge, no septal abnormalities noted. Tympanic membranes are normal and external auditory canals are clear. Oropharynx with no redness, swelling, or masses, exudates, or evidence of obstruction, uvula midline. Mucous membranes moist. Neck: Trachea midline, no thyromegaly or masses palpated, and no cervical lymphadenopathy. Supple, full range of motion without nuchal rigidity, or vertebral point tenderness. No Meningismus. Chest/axilla: Normal chest wall appearance and motion. Nontender with no deformity. No lesions are appreciated. Cardiovascular: Regular rate and rhythm with a normal S1 and S2. No gallops, murmurs, or rubs. Normal PMI, no JVD. No pulse deficits. Respiratory: Lungs have equal breath sounds bilaterally, clear to auscultation and percussion. No rales, rhonchi or wheezes noted. No increased work of breathing, no retractions or nasal flaring. Abdomen/GI: Soft, non-tender, with normal bowel sounds. No distension or tympany. No guarding or rebound. No evidence of tenderness throughout. Back: No spinal tenderness. No costovertebral tenderness. Full range of motion. Male : Normal genitalia with no discharge or lesions. Skin: Warm, dry with normal turgor. Normal color with no rashes, no lesions, and no evidence of cellulitis. MS/ Extremity: Pulses equal, no cyanosis. Neurovascular intact. Full, normal range of motion. Neuro: Awake and alert, GCS 15, oriented to person, place, time, and situation. Cranial nerves II-XII grossly intact. Motor strength 5/5 in all extremities. Sensory grossly intact. Cerebellar exam normal. Normal gait. Psych: Awake, alert, with orientation to person, place and time. Behavior, mood, and affect are within normal limits. 20:22 ECG was reviewed by the Attending Physician. [facility] Vital Signs: 17:49 BP 123 / 80; Pulse 87; Resp 19 S; Temp 97.5(TE); Pulse Ox 100% on R/A; Weight 92.99 kg ca1 (R); Height 5 ft. 9 in. (175.26 cm) (R); Pain 4/10; 20:23 BP 126 / 75; Pulse 75; Resp 16; Pulse Ox 99% on R/A; sg 17:49 Body Mass Index 30.27 (92.99 kg, 175.26 cm) ca1 MDM: 19:58 Patient medically screened. [facility] 20:18 TREASURE Risk Score: Total Score = 0. Differential diagnosis: arrythmia, dehydration, jose stress disorder. Data reviewed: vital signs, nurses notes, lab test result(s), EKG, radiologic studies, plain films. Data interpreted: patient monitor: rate is 87 beats/min, rhythm is normal sinus rhythm. Test interpretation: by ED physician or midlevel provider: ECG, plain radiologic studies. 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 01/10 19:59 Order name: Basic Metabolic Panel; Complete Time: 21:56 [facility] 01/10 19:59 Order name: CBC with Diff; Complete Time: 21:56 [facility] 01/10 19:59 Order name: LFT's; Complete Time: 21:56 [facility] 01/10 19:59 Order name: Magnesium; Complete Time: 21:56 [facility] 01/10 19:59 Order name: Troponin (emerg Dept Use Only); Complete Time: 21:56 [facility] 01/10 19:59 Order name: TSH; Complete Time: 21:56 [facility] 01/10 19:26 Order name: Chest Pa And Lat (2 Views) XRAY; Complete Time: 21:56 snw 01/10 19:26 Order name: EKG; Complete Time: 19:26 [facility] 01/10 19:26 Order name: EKG - Nurse/Tech; Complete Time: 19:28 [facility] 01/10 19:59 Order name: Cardiac monitoring; Complete Time: 20:03 [facility] 01/10 20:22 Order name: Urine Dipstick--Ancillary (enter results); Complete Time: 21:56 01/10 19:59 Order name: IV Saline Lock; Complete Time: 20: [facility] 01/10 19:59 Order name: Labs collected and sent; Complete Time: 20: [facility] 01/10 19:59 Order name: O2 Per Protocol; Complete Time: 20: [facility] 01/10 19:59 Order name: O2 Sat Monitoring; Complete Time: 20: [facility] EC: Rate is 84 beats/min. Rhythm is regular. QRS [place] is Normal. HI interval is shortened jose at 110 msec. QRS interval is normal. QT interval is normal. No Q waves. T waves are Normal. No ST changes noted. Clinical impression: NSR w/ Non-specific ST/T Changes and No evidence of ischemia. Interpreted by me. Reviewed by me. Administered Medications: 20:20 Drug: NS 0.9% 1000 ml Route: IV; Rate: 1 bolus; Site: left antecubital; sg 20:40 Drug: ToPROL XL 25 mg Route: PO; sg 21:20 Follow up: Response: No adverse reaction sg Disposition: 01/11/20 21:56 Discharged to Home. Impression: Palpitations. - Condition is Stable. - Discharge Instructions: Holter Monitoring, Palpitations, Aspirin and Your Heart, Palpitations, [id number]-Pirr, Cardiac Event Monitoring. - Prescriptions for Toprol XL 25 mg Oral Tablet - take 1 tablet by ORAL route once daily; 20 tablet. - Medication Reconciliation Form, Thank You Letter, Antibiotic Education, Prescription Opioid Use form. - Work release form (01/11/20 22:32). sg - Follow up: Private Physician; When: 2 - 3 days; Reason: Recheck today's complaints, Continuance of care, Re-evaluation by your physician. Follow up: Juan Gary; When: 2 - 3 days; Reason: Recheck today's complaints, Re-evaluation by your physician. - Problem is new. - Symptoms have improved. Signatures: Dispatcher [employer] EDMS Riley Tavarez RN RN Carl Solorio MD MD cha Waters, Shelly, FISH ICER-C FISH ICER-Csnw Janice Anton RN RN ca1 Corrections: (The following items were deleted from the chart) 20:01 19:59 Chest Single View+RAD.RAD.BRZ ordered. [facility] 22:28 21:56 01/11/2020 21:56 Discharged to Home. Impression: Palpitations. Condition is sg Stable. Discharge Instructions: Palpitations, Ccyq-[id number]-Hopq, Holter Monitoring, Palpitations, Aspirin and Your Heart, Cardiac Event Monitoring. Prescriptions for Toprol XL 25 mg Oral Tablet - take 1 tablet by ORAL route once daily; 20 tablet. and Forms are Medication Reconciliation Form, Thank You Letter, Antibiotic Education, Prescription Opioid Use. Follow up: Private Physician; When: 2 - 3 days; Reason: Recheck today's complaints, Continuance of care, Re-evaluation by your physician. Follow up: Juan Gary; When: 2 - 3 days; Reason: Recheck today's complaints, Re-evaluation by your physician. Problem is new. Symptoms have improved. jose
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
[2020-01-11 22:38] VITALS: TEMP 97.5
[2020-01-11 22:39] VITALS: BP 126/75; O2SAT 99
--- NOTE | 2020-01-12 08:44 | EKG ---
Test Date: 2020-01-11 Test Time: 17:59:56 Stone Hand: STUART MEASUREMENT RESULTS: Intervals: Rate: 84 AR: 110 QRSD: 98 QT: 364 QTc: 430 [place]: P: 48 AR: 110 QRS: 57 T: 28 INTERPRETIVE STATEMENTS: Sinus rhythm with sinus arrhythmia with short AR Otherwise normal ECG Compared to ECG 11/04/2019 20:01:27 Short AR interval now present Sinus tachycardia no longer present T-wave abnormality no longer present Electronically Signed On 01-12-20 08:43:13 CDT by Juan Gary
== END 2020-01-11 22:28 | disposition home or self-care (01) ==
LOC: ER 17:23
DX: R00.2 Palpitations (principal); J45.909 Unspecified asthma, uncomplicated
CPT/HCPCS: 36415; 71046; 80048; 80076; 81003; 83735; 84443; 84484; 85025; 93005; 99285

== ENCOUNTER 2020-01-26 20:38 | Emergency (ER) | payer OTHER, SELFPAY ==
[2020-01-26] MEDS ORDERED: CYCLOBENZAPRINE 10 MG TAB ONE (20:57)
[2020-01-26] MEDS ORDERED: KETOROLAC 30 MG/ML INJ ONE (20:57)
--- NOTE | 2020-01-26 21:03 | RAD REPORT ---
EXAM DESCRIPTION: CTSpine Lumbar Wo Con01/26/2020 8:53 pm CLINICAL HISTORY: Back injury with back pain and radiculopathy COMPARISON: None TECHNIQUE: Computed axial tomography lumbar spine was obtained with coronal and sagittal reconstruct ion. All CT scans are performed using dose optimization technique as appropriate and may include automated exposure control or mA/KV adjustment according to patient size. FINDINGS: Sacralization of L5 No fracture No dislocation Possible small central disc herniation L5-S1 No high-grade stenosis IMPRESSION: Negative for a lumbar fracture. Possible small central disc herniation L5-S1 If patient's symptoms persist MRI of the lumbar spine may be helpful
--- NOTE | 2020-01-26 21:07 | EDPHYS ---
Physician Documentation [facility] Name: Hernando Montez Age: 29 yrs Sex: Male : 1990 Arrival Date: 01/26/2020 Time: 20:40 Bed 7 Private MD: ED Physician Kane Long HPI: 01/25 20:53 This 29 yrs old Male presents to ER via EMS with complaints of back pain. kb 20:53 The patient presents with pain that is acute, and tenderness. The symptoms are located kb in the lumbar area and right low back. The pain does not radiate. 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 . Onset: The symptoms/episode began/occurred just prior to arrival. Modifying factors: The patient symptoms are alleviated by rest, the patient symptoms are aggravated by movement. Associated signs and symptoms: The patient has no apparent associated signs or symptoms. Severity of symptoms: At their worst the symptoms were moderate, in the emergency department the symptoms are unchanged. The patient has not experienced similar symptoms in the past. The patient has not recently seen a physician. Historical: - Home Meds: 20:48 Advair Diskus Inhl [Active]; Singulair Oral [Active]; ll2 22:12 Albuterol Inhl [Active]; rr5 - Immunization history:: Adult Immunizations up to date. - Social history:: Smoking status: unknown. ROS: 20:53 Constitutional: Negative for fever, chills, and weight loss, Cardiovascular: Negative kb for chest pain, palpitations, and edema, Respiratory: Negative for shortness of breath, cough, wheezing, and pleuritic chest pain, Abdomen/GI: Negative for abdominal pain, nausea, vomiting, diarrhea, and constipation, : Negative for injury, bleeding, discharge, and swelling, MS/Extremity: Negative for injury and deformity, Skin: Negative for injury, rash, and discoloration, Neuro: Negative for headache, weakness, numbness, tingling, and seizure. 20:53 Back: Positive for pain at rest, pain with movement, of the lumbar area and right low back. Exam: 20:53 Constitutional: This is a well developed, well nourished patient who is awake, alert, kb and in no acute distress. Head/Face: Normocephalic, atraumatic. Chest/axilla: Normal chest wall appearance and motion. Nontender with no deformity. No lesions are appreciated. Cardiovascular: Regular rate and rhythm with a normal S1 and S2. No gallops, murmurs, or rubs. Normal PMI, no JVD. No pulse deficits. Respiratory: Lungs have equal breath sounds bilaterally, clear to auscultation and percussion. No rales, rhonchi or wheezes noted. No increased work of breathing, no retractions or nasal flaring. Abdomen/GI: Soft, non-tender, with normal bowel sounds. No distension or tympany. No guarding or rebound. No evidence of tenderness throughout. Skin: Warm, dry with normal turgor. Normal color with no rashes, no lesions, and no evidence of cellulitis. MS/ Extremity: Pulses equal, no cyanosis. Neurovascular intact. Full, normal range of motion. Neuro: Awake and alert, GCS 15, oriented to person, place, time, and situation. Cranial nerves II-XII grossly intact. Motor strength 5/5 in all extremities. Sensory grossly intact. Cerebellar exam normal. Normal gait. 20:53 Back: pain, that is moderate, of the lumbar area and right low back, ROM is painful, normal spinal alignment noted. Vital Signs: 20:40 BP 130 / 76; Pulse 93; Resp 18; Temp 97.7; Pulse Ox 95% on R/A; ll2 20:49 BP 130 / 76; Pulse 93; Resp 18; Temp 97.7; Pulse Ox 95% on R/A; ll2 MDM: 20:42 Patient medically screened. kb 20:52 Data reviewed: vital signs, nurses notes. Data interpreted: Pulse oximetry: on room air kb is 95 %. Interpretation: normal. Counseling: I had a detailed discussion with the patient and/or guardian regarding: the historical points, exam findings, and any diagnostic results supporting the discharge/admit diagnosis, radiology results, the need for outpatient follow up, a family practitioner, to return to the emergency department if symptoms worsen or persist or if there are any questions or concerns that arise at home. 01/25 20:42 Order name: CT Lumbar Spine Wo Con; Complete Time: 21:06 kb Administered Medications: 20:48 Drug: Flexeril 10 mg Route: PO; rr5 20:48 Drug: TORadol 30 mg Route: IM; Site: right deltoid; rr5 Disposition: 01/26 06:29 Co-signature as Attending Physician, Kane Long MD I agree with the assessment and tw4 plan of care. Disposition: 01/26/20 21:07 Discharged to Home. Impression: Low back pain. - Condition is Stable. - Discharge Instructions: Back Injury Prevention, [id number], Back Pain, Adult, [id number]. - Prescriptions for Cyclobenzaprine 10 mg Oral Tablet - take 1 tablet by ORAL route every 8 hours As needed; 21 tablet. Diclofenac Sodium 75 mg Oral Tablet, Delayed Release (E.C.) - take 1 tablet by ORAL route 2 times per day As needed; 30 tablet. - Medication Reconciliation Form, Thank You Letter, Antibiotic Education, Prescription Opioid Use, Work release form form. - Follow up: Emergency Department; When: As needed; Reason: Worsening of condition. Follow up: Private Physician; When: 2 - 3 days; Reason: Recheck today's complaints, Continuance of care, Re-evaluation by your physician. Signatures: Dispatcher [employer] EDDC Karmen Preciado, BUTTER WRAPPER-C BUTTER WRAPPER-Kane Moon MD MD tw4 Junior Yoon RN RN rr5 Renee Mendosa RN RN ll2 Corrections: (The following items were deleted from the chart) 01/25 22:12 20:48 Home Meds: Albuterol Inhl; ll2 rr5 22:13 21:07 01/26/2020 21:07 Discharged to Home. Impression: Low back pain. Condition is rr5 Stable. Forms are Medication Reconciliation Form, Thank You Letter, Antibiotic Education, Prescription Opioid Use. Follow up: Emergency Department; When: As needed; Reason: Worsening of condition. Follow up: Private Physician; When: 2 - 3 days; Reason: Recheck today's complaints, Continuance of care, Re-evaluation by your physician. kb
--- NOTE | 2020-01-26 21:07 | ER ---
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 states they gave him nothing in the field, and was comfortable in the field. has a hx of asthma. Coronavirus screen: Client denies travel out of the [place] in the last 14 days. At this time, the client does not indicate any symptoms associated with coronavirus-19. Ebola Screen: Patient negative for fever greater than or equal to 101.5 degrees Fahrenheit, and additional compatible Ebola Virus Disease symptoms No symptoms or risks identified at this time. Initial Sepsis Screen: Does the patient meet any 2 criteria? No. Patient's initial sepsis screen is negative. Does the patient have a suspected source of infection? No. Patient's initial sepsis screen is negative. Risk Assessment: Do you want to hurt yourself or someone else? Patient reports no desire to harm self or others. Onset of symptoms was January 26, 2020. 20:40 Method Of Arrival: EMS: [facility] ll[facility] 20:40 Acuity: KAMRAN 4 ll2 Triage Assessment: 20:48 General: Appears in no apparent distress. Behavior is calm, cooperative, appropriate ll2 for age. Pain: Complains of pain in lumbar area, low back area and right low back. Historical: - Home Meds: 20:48 Advair Diskus Inhl [Active]; Singulair Oral [Active]; ll2 22:12 Albuterol Inhl [Active]; rr5 - Immunization history:: Adult Immunizations up to date. - Social history:: Smoking status: unknown. Screenin:49 Abuse screen: Denies threats or abuse. Nutritional screening: No deficits noted. ll2 Tuberculosis screening: No symptoms or risk factors identified. Fall Risk None identified. Assessment: 20:48 Reassessment: see triage assessment. General: Appears in no apparent distress. Behavior ll2 is calm, cooperative, appropriate for age. Vital Signs: 20:40 BP 130 / 76; Pulse 93; Resp 18; Temp 97.7; Pulse Ox 95% on R/A; ll2 20:49 BP 130 / 76; Pulse 93; Resp 18; Temp 97.7; Pulse Ox 95% on R/A; ll2 ED Course: 20:40 Patient arrived in ED. kb 20:40 Renee Mendosa, RN is Primary Nurse. ll2 20:42 Karm[facility] Preciado [facility]C [facility]. kb 20:42 Kane Long MD is Attending Physician. kb 20:47 Triage completed. ll2 20:49 Patient has correct armband on for positive identification. Bed in low position. Call ll2 light in reach. Side rails up X 1. 20:53 CT Lumbar Spine Wo Con In Process Unspecified. EDMS 22:12 Arm band placed on right wrist. rr5 22:13 No provider procedures requiring assistance completed. Patient did not have IV access rr5 during this emergency room visit. Administered Medications: 20:48 Drug: Flexeril 10 mg Route: PO; rr5 20:48 Drug: TORadol 30 mg Route: IM; Site: right deltoid; rr5 Outcome: 21:07 Discharge ordered by MD. kb 22:12 Discharged to home ambulatory. rr5 22:12 Condition: stable 22:12 Discharge instructions given to patient, Instructed on discharge instructions, follow up and referral plans. medication usage. 22:13 Patient left the ED. rr5 Signatures: Dispatcher [employer] EDMN Karmen Preciado FNP-C FNP-Ckb Roque, Raymond, RN RN rr5 Renee Mendosa, RN RN ll2 Corrections: (The following items were deleted from the chart) 22:12 20:48 Home Meds: Albuterol Inhl; ll2 rr5
[2020-01-26 22:26] VITALS: BP 130/76; TEMP 97.7; O2SAT 95
--- OUTSIDE RECORDS SUMMARY | 2020-01-27 05:32 | XMS REPORT | Summary of Care ---
:1990 Author Organization [facility] Address [address] [place] [address] Care Team Providers Name Role Phone Pcp, Patient Does Not Have A Primary Care Provider +[id number] 0-0000 Reason for Referral Radiology Services (STAT) Status Reason Specialty Diagnoses / Referred By Referred To Procedures Contact Contact New Request Diagnostic Diagnoses Palpitations Chest pain, unspecified type Maurice Nelson Radiology Procedures XR CHEST 2 TOM Hernandez MD [address] [place] [id number] [place] [id number] Reason for Visit Reason Comments Palpitations Auth/Cert Status Reason Specialty Diagnoses / Referred By Referred To Procedures Contact Contact Emergency Medicine [facility] Dept [address] [place] [phone] Fax: Encounter Details Date Type Department Care Team Description 01/15/2020 Emergency [facility] Maurice Nelson MD Palpitations (Primary Dx); Department [address] [place] [address] [id number] Chest pain, unspecified type [address] [place] [address] [place] [address] Allergies Active Allergy Reactions Severity Noted Date Comments Latex Rash 05/18/2014 documented as of this encounter (statuses as of 01/15/2020) Medications Medication Sig Dispensed Refills Start Date [...] exacerbation, Shortness of unspecified whether Breath. persistent predniSONE 20 mg Take 1 tablet by [...] respiratory disease due to COVID-19 virus, Cough Fluticasone-Salmetero Inhale 1 Puff 60 Each 5 12/21/2019 Active l (ADVAIR DISKUS) every 12 (twelve) 500-50 mcg/dose hours. inhalation diskIndications: Moderate persistent asthma without complication montelukast Take 1 tablet by 30 tablet 2 12/21/2019 Active (SINGULAIR) 10 mg mouth at bedtime. tabletIndications: Moderate persistent asthma without complication documented as of this encounter (statuses as of 01/15/2020) Active Problems Problem Noted Date Elevated LFTs [...] as of this encounter (statuses as of 01/15/2020) Immunizations Name Administration Dates Next Due Influenza [...] been in contact with No / Unsure 01/15/2020 12:34 PM CDT someone who was confirmed or suspected to have Coronavirus / COVID-19? documented as of this encounter Last Filed Vital Signs Vital Sign Reading Time Taken Comments Blood Pressure 125/90 01/15/2020 1:45 PM CDT Pulse 89 01/15/2020 1:45 PM CDT Temperature 35.8 C (96.5 F) 01/15/2020 12:35 PM CDT Respiratory Rate 18 01/15/2020 1:45 PM CDT Oxygen Saturation 95% 01/15/2020 1:45 PM CDT Inhaled Oxygen Concentration - - Weight 92.5 kg (203 lb 14.7 oz) 01/15/2020 12:35 PM CDT Height - - Body Mass Index 30.11 12/21/2019 1:56 PM CDT documented in this encounter Discharge Instructions InstructionsMaurice Nelson MD - 01/15/2020 Your diagnosis is: palpitations Your treatments today included: Orders Placed This Encounter Procedures XR CHEST 2 VW CBC WITH DIFF COMP. METABOLIC PANEL (84262) PHOSPHORUS MAGNESIUM TROPONIN I D-DIMER THYROID STIMULATING HORMONE Your prescriptions today are: none You will need to follow-up with your Primary Care Provider: 2-3 days If you do not have a primary care provider, you will need to arrange for your own. If you need assistance with this, the discharge planners can help you identify resources appropriate for you. See further medical attention for: IF you develop any new concerning symptoms AttachmentsThe following attachments cannot be sent through Care Everywhere. Palpitations (Dominican)documented in this encounter ED Notes Obi Adamson RN - 01/15/2020 12:34 PM Nicolás Montez is a 29 year old male to ED for evaluation palpitations since Thursday of this week where he was seen at [facility] and instructed to return to an ED if symptoms continued. Repots chest pain andpalpitations at this time to room for EKG Maurice Smyth MD - 01/15/2020 12:33 PM CDT [facility] Emergency Department Note Patient Name: Hernando Montez Date of : 1990 29 year old male Treatment Room: [address] [place] [address] Primary Care Physician: PATIENT DOES NOT HAVE A PCP Patient Escorted by: Self [9] Mode of Arrival: Personal means [1] EMS Treatment Prior to ED Arrival: [employer] treatment: None Travel and Exposure Screening: Symptoms Does patient have any of these symptoms?: (not recorded) Exposure Screening Has patient had contact with someone with a communicable disease in the last month?: (not recorded) Diseases exposed to:: (not recorded) Is Patient ?: (not recorded) Exposure Date: (not recorded) Chief Complaint: Chief Complaint Patient presents with Palpitations History of Present Illness: Patient presenting to ED with c/o palpitations, chest pain and dizziness that occurred this morning after waking up. According to patient he woke up with palpitations and chest pain. Located left side of chest, aching, 5/10 and non radiating. Patient also states he felt light headed as well. Patient states he has been dealing with similar episodes for the past 1 year. Patient states he had covid backin October but all his symptoms have resolved and back to normal. Patient denies any fever, chills, recent travel or recent trauma. 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 Smokeless Tobacco: Former user of smokeless tobacco; Quit 02/2017; Types: Chew. Alcohol Use Yes. Comments: ocassionaly Drug Use No. Sexual Activity Sexually active; Partners: Female. Past Surgical History: Past Surgical History: Procedure Laterality Date HERNIA REPAIR Review of Systems: Review of Systems Constitutional: Negative for chills and fever. Eyes: Negative for visual disturbance. Respiratory: Negative for cough and shortness of breath. Cardiovascular: Positive for chest pain and palpitations. Gastrointestinal: Negative for abdominal pain, nausea and vomiting. Genitourinary: Negative for dysuria. Musculoskeletal: Negative for back pain. Neurological: Positive for light-headedness. Physical Exam: ED Triage Vitals [01/15/20 1235] Weight 92.5 kg (203 lb 14.7 oz) Actual or estimated Height BP (!) 134/94 Pulse 100 Resp 18 Temp 35.8 C (96.5 F) Temp source Oral SpO2 95 % Measured on Physical Exam Vitals signs and nursing note reviewed. Constitutional: General: He is not in acute distress. Appearance: Normal appearance. He is normal weight. He is not ill-appearing, toxic-appearing or diaphoretic. HENT: Head: Normocephalic and atraumatic. Right Ear: External ear normal. Left Ear: External ear normal. Nose: Nose normal. Eyes: Extraocular Movements: Extraocular movements intact. Conjunctiva/sclera: Conjunctivae normal. Neck: Musculoskeletal: Normal range of motion and neck supple. Cardiovascular: Rate and Rhythm: Regular rhythm. Tachycardia present. Pulses: Normal pulses. Heart sounds: Normal heart sounds. Pulmonary: Effort: Pulmonary effort is normal. No respiratory distress. Breath sounds: Normal breath sounds. No wheezing. Abdominal: General: Bowel sounds are normal. There is no distension. Palpations: Abdomen is soft. Tenderness: There is no abdominal tenderness. There is no guarding. Musculoskeletal: Normal range of motion. Skin: General: Skin is warm. Neurological: General: No focal deficit present. Mental Status: He is alert and oriented to person, place, and time. Mental status is at baseline. Psychiatric: Mood and Affect: Mood normal. Behavior: Behavior normal. Thought Content: Thought content normal. Radiology: Hospital Encounter on 01/15/20 XR CHEST 2 VW Narrative EXAM: XR CHEST 2 VW COMPARISON: Chest x-ray 11/08/2019 HISTORY: chest pain, palpiations TECHNIQUE: PA and lateral views of the chest were obtained. FINDINGS: Lungs/pleura: The lungs are clear. No focal consolidation identified. No pleural effusion or pneumothorax is identified. Heart/Mediastinum: The cardiac silhouette is normal in size. No acute osseous abnormality. Impression No acute cardiopulmonary process. Preliminary Report Dictated by Resident: Yovani Caballero Lab Results (24h): Recent Results (from the past 24 hour(s)) CBC WITH DIFF Collection Time: 01/15/20 12:47 PM Result Value Ref Range WBC 8.83 4.20 - 10.70 10*3/L RBC 5.79 (H) 4.26 - 5.52 10*6/L HGB 15.8 12.2 - 16.4 g/dL HCT 45.0 38.4 - 49.3 % MCV 77.7 (L) 81.7 - 95.6 fL MCH 27.3 26.1 - 32.7 pg MCHC 35.1 (H) 31.2 - 35.0 g/dL RDW-SD 35.4 (L) 38.5 - 51.6 fL RDW-CV 12.7 12.1 - 15.4 % PLT 239 150 - 328 10*3/L MPV 10.7 9.8 - 13.0 fL NRBC/100 WBC 0.0 0.0 - 10.0 /100 WBCs NRBC x10^3 <0.01 10*3/L GRAN MAT (NEUT) % 63.4 % IMM GRAN % 0.50 % LYMPH % 28.3 % MONO % 6.7 % EOS % 0.5 % BASO % 0.6 % GRAN MAT x10^3(ANC) 5.61 1.99 - 6.95 10*3/uL IMM GRAN x10^3 0.04 0.00 - 0.06 10*3/uL LYMPH x10^3 2.50 1.09 - 3.23 10*3/uL MONO x10^3 0.59 0.36 - 1.02 10*3/uL EOS x10^3 0.04 (L) 0.06 - 0.53 10*3/uL BASO x10^3 0.05 0.01 - 0.09 10*3/uL COMP. METABOLIC PANEL (76196) Collection Time: 01/15/20 12:47 PM Result Value Ref Range NA 139 135 - 145 mmol/L K 4.1 3.5 - 5.0 mmol/L CL 101 98 - 108 mmol/L CO2 TOTAL 26 23 - 31 mmol/L AGAP 12 2 - 16 BUN 11 7 - 23 mg/dL GLUCOSE 123 (H) 70 - 110 mg/dL CREATININE 1.02 0.60 - 1.25 mg/dL TOTAL BILI 1.4 (H) 0.1 - 1.1 mg/dL CALCIUM 9.6 8.6 - 10.6 mg/dL T PROTEIN 8.5 (H) 6.3 - 8.2 g/dL ALBUMIN 5.0 3.5 - 5.0 g/dL ALK PHOS 55 34 - 122 U/L ALTv 92 (H) 5 - 50 U/L AST(SGOT) 52 (H) 13 - 40 U/L eGFR Calculation (Non-) 85.8 mL/min/1.73m2 eGFR Calculation () 103.9 mL/min/1.73m2 PHOSPHORUS Collection Time: 01/15/20 12:47 PM Result Value Ref Range PHOSPHORUS 2.3 (L) 2.5 - 5.0 mg/dL MAGNESIUM Collection Time: 01/15/20 12:47 PM Result Value Ref Range MAGNESIUM 2.0 1.7 - 2.4 mg/dL TROPONIN I Collection Time: 01/15/20 12:47 PM Result Value Ref Range TROPONIN I 0.003 <=0.034 ng/mL D-DIMER Collection Time: 01/15/20 12:47 PM Result Value Ref Range D-DIMER 0.23 <0.50 g/mL (FEU) THYROID STIMULATING HORMONE Collection Time: 01/15/20 12:47 PM Result Value Ref Range TSH 1.91 0.45 - 4.70 mIU/L EKG: Sinus tachycardia Normal axis Rate: 101 EKG changed when compared with previous EKG Orders and Treatments: Orders Placed This Encounter Procedures XR CHEST 2 VW CBC WITH DIFF COMP. METABOLIC PANEL (06715) PHOSPHORUS MAGNESIUM TROPONIN I D-DIMER THYROID STIMULATING HORMONE No orders of the defined types were placed in this encounter. ED COURSE 29 y/o male with history noted above, presenting to ED with c/o intermittent episodes of chest pain,palpitations and lightheadedness that has been going on and off for the past 1 year and last episodePTA. Currently, patient back to baseline. Blood work WNL, trop WNL and EKG sinus tachycardia HR 101.TSH wNL. D dimer WNL as well. CXR unremarkable. Patient remained asymptomatic in ED. Patient DC homeand instructed to follow up with PCP MDM: MDM Reviewed: nursing note and vitals Reviewed previous: ECG Interpretation: labs, ECG and x-ray Diagnosis/Impression: ICD-10-CM ICD-9-CM 1. Palpitations R00.2 785.1 2. Chest pain, unspecified type R07.9 786.50 Disposition/Condition: ED Disposition None Discharge Medications: Patient's Medications START taking these medications No medications on file CONTINUE taking these medications which have NOT CHANGED ALBUTEROL 90 MCG/ACTUATION INHALER Inhale 2 Puffs every 4 (four) hours as needed for Wheezing orShortness of Breath. AZITHROMYCIN (ZITHROMAX Z-SHERRY) 250 MG TABLET 2 tabs now then 1 tab daily for 4 days BENZONATATE 100 MG CAPSULE Take 1 capsule by mouth 3 (three) times daily as needed for Cough. CETIRIZINE (ZYRTEC) 10 MG TABLET Take 1 tablet by mouth daily. FLUTICASONE-SALMETEROL (ADVAIR DISKUS) 500-50 MCG/DOSE INHALATION DISK Inhale 1 Puff every 12 (twelve) hours. MELATONIN 5 MG TABLET Take 1 tablet by mouth at bedtime. OTC MONTELUKAST (SINGULAIR) 10 MG TABLET Take 1 tablet by mouth at bedtime. PREDNISONE 20 MG TABLET Take 1 tablet by mouth 2 (two) times daily. PREDNISONE 20 MG TABLET Take 40 mg (2 tablets) daily for 5 days TOBRAMYCIN 0.3 % OPHTHALMIC DROPS Place 1 Drop in right eye 4 (four) times daily. START taking Modified Medications as Prescribed No medications on file STOP taking these medications No medications on file Follow-up: Electronically signed by: Maurice Nelson MD 01/15/2020 12:55 PM documented in this encounter Miscellaneous Notes ED Nurse Note - Estelita Chanel RN - 01/15/2020 1:59 PM CDTPatient given printed and verbal discharge instructions regarding palpitations. encouraged hydration and proper nutrition Discussed indications, medication side effects, and therapeutic response to medications. Advised to take until completed unless adverse reaction occurs - if occurs, discontinue medication and follow upwith PCP/seek medical attention. Patient verbalized understanding of instructions. Patient awake alert oriented, respirations even and unlabored, no acute distress noted, skin warm & dry, color appropriate for race, moves all extremities well. Patient encouraged to follow up with PCP and to keep all appropriate appointments as scheduled or toreturn to ED for new/prolonged/worsening of symptoms. Patient reports has appointment with cardiology. No adverse reaction to medications given in ER noted upon discharge PIV d'cd without complications, dressing to site, catheter intact. Patient ambulatory to lobby with steady gait, NAD noted, in possession of all belongings. D Nurse Note - Estelita Chanel RN - 01/15/2020 1:48 PM CDTDr Leslie at bedside to discuss findings/dispo plan. D Nurse Note - Marybeth Staley RN - 01/15/2020 12:39 PM CDT Hernando Montez is a 29 year old male to ED for cc CP x3 days. Patient reports intermitent pressure like pain in center of chest that is non radiating. Patient also endorses palpitations. Patient reports worsening of pain on exertion. Patient has cardiology appointment in 1 month. Patient is answering questions slowly or not at all. Patient placed on monitors, EKG obtained, PIV access established and labs drawn. 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 documented in this encounter Plan of Treatment Date Type Specialty Care Team Description 02/13/2020 Office Visit Cardiology [place] [address] [place], [place] [address] Name Type Priority Associated Diagnoses Date/Ti me XR CHEST 2 VW IMAGING STAT Palpitations 01/15/2020 1:07 PM CDT Chest pain, unspecified type Health Maintenance Due Date Last Done Comments [...] Date/Time Associated Diagnosis Comme nts XR CHEST 2 VW STAT 01/15/2020 1:07 PM CDT Palpitat ions Chest pain, unspecified type Procedure Note - [facility], Radia nt Results Inft User - 01/15/2020 1:17 PM CDT EXAM: XR CHEST 2 VW COMPARISON: Chest x-ray 11/07 HISTORY: chest pain, palpiat ions TECHNIQUE: PA and lateral vi ews of the chest were obtained. FINDINGS: Lungs/pleura: The lungs are clear. No focal consolidation identified. No pleural effusion or pneumoth orax is identified. Heart/Mediastinum: The cardi ac silhouette is normal in size. No acute osseous abnormality . IMPRESSION No acute cardiopulmonary pro cess. Preliminary Report Dictated by Resident: Yovani Caballero D-DIMER STAT 01/15/2020 12:47 Palpitations Results for PM CDT Chest pain, unspecified this procedure type are in the results section. CBC WITH DIFF STAT 01/15/2020 12:47 Palpitations Results for PM CDT Chest pain, unspecified this procedure type are in the results section. COMP. METABOLIC STAT 01/15/2020 12:47 Palpitations Results for PANEL (73591) PM CDT Chest pain, unspecified thi s procedure type are in the results section. THYROID STAT Add-On 01/15/2020 12:47 Palpitations Results for STIMULATING PM CDT Chest pain, unspecified this procedure HORMONE type are in the results section. TROPONIN I STAT 01/15/2020 12:47 Palpitations Results for PM CDT Chest pain, unspecified this procedure type are in the results section. MAGNESIUM STAT 01/15/2020 12:47 Palpitations Results for PM CDT Chest pain, unspecified this procedure type are in the results section. PHOSPHORUS STAT 01/15/2020 12:47 Palpitations Results for PM CDT Chest pain, unspecified this procedure type are in the results section. EKG-12 LEAD Routine 01/15/2020 12:45 PM CDT documented in this encounter Results THYROID STIMULATING HORMONE (01/15/2020 12:47 PM CDT) Pathologist Sig nature TSH 1.91 0.45 - 4.70 mIU/L [facility] S Specimen Blood - VENOUS Performing Organization Address City/[facility] Centercode Phone Number [facility] CLIA: [id number] [place] [address] [place] [address] D-DIMER (01/15/2020 12:47 PM CDT) Pathologist Sig nature D-DIMER 0.23 <0.50 g/mL (FEU) [facility] ES Specimen Blood - VENOUS Narrative Performed At This test may be used in conjunction with a clinical p retest [facility] probability (PTP) assessment model to exclude venous thromboembolism (VTE) in patients suspected of deep ve nous thrombosis (DVT) and pulmonary embolism (PE) A D-Dimer value less than 0.50 g/ml (FEU) has a nega tive predicative value of 96 to 100% (95% CI)and 97 to 100% (95% CI) as an aid in the diagnosis of deep vein thrombosis (DVT) and pulmonary embolism when there is low or moderate p retest probability of PE or DVT. D-Dimer values are expressed in initial fibrinogen equivalent units (FEU)" The assay results should be used with other informatio n, including the clinical context, in formi ng a diagnosis. Performing Organization Address City/[facility]/Zipcode Phone Number [facility] CLIA: [id number] [place] [address] [place] [address] TROPONIN I (01/15/2020 12:47 PM CDT) Pathologist Sig nature TROPONIN I 0.003 <=0.034 ng/mL [facility] Specimen Blood - VENOUS Narrative Performed At Equal or Less than 0.034 ng/ml---Normal [facility] Note: Cardiac troponin begins [...] patient's use of biotin. Performing Organization Address City/[facility]/Zipcode Phone Number [facility] CLIA: [id number] [place] [address] [place] [address] MAGNESIUM (01/15/2020 12:47 PM CDT) Pathologist Sig Umbrella Here MAGNESIUM 2.0 1.7 - 2.4 mg/dL [facility] Specimen Blood - VENOUS Performing Organization Address [facility] Centercomi Phone Number [facility] CLIA: [id number] [place] [address] [place] [address] PHOSPHORUS (01/15/2020 12:47 PM CDT) Pathologist Sig Umbrella Here PHOSPHORUS 2.3 (L) 2.5 - 5.0 mg/dL [facility] Specimen Blood - VENOUS Performing Organization Address [facility] Centercode Phone Number [facility] CLIA: [id number] [place] [address] [phone] [address] [facility] COMP. METABOLIC PANEL ([id number]) (01/15/2020 12:47 PM CDT) Pathologist Sig nature NA 139 135 - 145 [facility] mmol/L SERVICES K 4.1 3.5 - 5.0 [facility] mmol/L SERVICES CL 101 98 - 108 mmol/L [facility] CO2 TOTAL 26 23 - 31 mmol/L [facility] AGAP 12 2 - 16 [facility] BUN 11 7 - 23 mg/dL [facility] GLUCOSE 123 (H) 70 - 110 mg/dL [facility] CREATININE 1.02 0.60 - 1.25 [facility] mg/dL SERVICES TOTAL BILI 1.4 (H) 0.1 - 1.1 mg/dL [facility] CALCIUM 9.6 8.6 - 10.6 [facility] mg/dL SERVICES T PROTEIN 8.5 (H) 6.3 - 8.2 g/dL [facility] ALBUMIN 5.0 3.5 - 5.0 g/dL [facility] ALK PHOS 55 34 - 122 U/L [facility] ALTv 92 (H) 5 - 50 U/L [facility] AST(SGOT) 52 (H) 13 - 40 U/L [facility] eGFR Calculation 85.8 mL/min/1.73m2 [facility] (Non- SERVICES [place]) eGFR Calculation 103.9 mL/min/1.73m2 [facility] () SERVICES Specimen Blood - VENOUS Narrative Performed At Association of Glomerular Filtration Rate (GFR) and St aging [facility] of Kidney Disease* [...] . Performing Organization Address City/State/Zipcode Phone Number [facility] CLIA: [id number] [place], [place] [address] [address] [place] [address] Blvd CBC WITH DIFF (01/15/2020 12:47 PM CDT) Pathologist Sig nature WBC 8.83 4.20 - 10.70 [facility] 10*3/L SERVICES RBC 5.79 (H) 4.26 - 5.52 [facility] 10*6/L SERVICES HGB 15.8 12.2 - 16.4 [facility] g/dL SERVICES HCT 45.0 38.4 - 49.3 % [facility] MCV 77.7 (L) 81.7 - 95.6 fL [facility] MCH 27.3 26.1 - 32.7 pg [facility] MCHC 35.1 (H) 31.2 - 35.0 [facility] g/dL SERVICES RDW-SD 35.4 (L) 38.5 - 51.6 fL [facility] RDW-CV 12.7 12.1 - 15.4 % [facility] PLT 239 150 - 328 [facility] 10*3/L SERVICES MPV 10.7 9.8 - 13.0 fL [facility] NRBC/100 WBC 0.0 0.0 - 10.0 /100 [facility] WBCs SERVICES NRBC x10^3 <0.01 10*3/L [facility] GRAN MAT (NEUT) % 63.4 % [facility] IMM GRAN % 0.50 % [facility] LYMPH % 28.3 % [facility] MONO % 6.7 % [facility] EOS % 0.5 % [facility] BASO % 0.6 % [facility] GRAN MAT x10^3(ANC) 5.61 1.99 - 6.95 [facility] 10*3/uL SERVICES IMM GRAN x10^3 0.04 0.00 - 0.06 [facility] 10*3/uL SERVICES LYMPH x10^3 2.50 1.09 - 3.23 [facility] 10*3/uL SERVICES MONO x10^3 0.59 0.36 - 1.02 [facility] 10*3/uL SERVICES EOS x10^3 0.04 (L) 0.06 - 0.53 [facility] 10*3/uL SERVICES BASO x10^3 0.05 0.01 - 0.09 [facility] 10*3/uL SERVICES Specimen Blood - VENOUS Performing Organization Address City/State/Zipcode Phone Number [facility] CLIA: [id number] [place] [address] [place] [address] documented in this encounter Visit Diagnoses Diagnosis Palpitations - Primary Chest pain, unspecified type documented in this encounter Additional Health Concerns Infection Onset Date Last Indicated Resolved Time COVID-19 Confirmed 10/19/2019 11/01/2019 documented as of this encounter Insurance Payer Benefit Plan Subscriber ID Effective Dates Phone Address Type / Group [facility] [id number] 2019-Tim [phone] [address] PPO/POS [place] [employer] [id number] [place] [address] documented as of this encounter
== END 2020-01-26 22:13 | disposition home or self-care (01) ==
LOC: ER 20:38
DX: M54.5 Low back pain (principal)
CPT/HCPCS: 72131; 96372; 99283